=== PATIENT | male | born 1945 | race Caucasian/White ===

== ENCOUNTER 2021-04-19 17:21 | Inpatient (IN) ==
[2021-04-19] MEDS ORDERED: LORazepam 1 MG TAB SL STA (18:17)
[2021-04-19] MEDS ORDERED: haloperidoL 5 MG TAB PO STA (18:17)
--- NOTE | 2021-04-19 19:35 | XRay Report ---
XR chest 1V portable HISTORY: weakness COMPARISON: None. FINDINGS: The lungs are hyperexpanded with apical predominant emphysematous changes. There is a small right pleural effusion. The heart is normal in size. Interstitial thickening and a hazy right basila r density. There are small nodular densities within the lung apices. IMPRESSION: 1. Small right pleural effusion and right basilar hazy density. This may represent atelectasis or pne umonia. 2. Emphysema. 3. Small nodular densities within the lung apices which may be chronic. This will be better present o n the same day chest CT. ACT 112: Negative or not required by law. Electronically signed by: Roberto Fowler M.D. 04/19/2021 7:34 PM
[2021-04-19 19:52] LABS: Basophils # (auto) 0.03 K/uL (0-0.2); Basophils % (auto) 0.6 %; Eosinophils # (auto) 0.05 K/uL (0-0.5); Hematocrit (blood only) 34.4 % (42-52); Hemoglobin 11.6 g/dL (14.0-18.0); Immature Granulocytes # (auto) 0.01 K/uL (0.00-0.02); Immature Granulocytes % (auto) 0.2 %; Lymphocytes % (auto) 15.7 %; Mean Corpuscular Hgb Conc 33.7 g/dL (32-36); Mean Platelet Volume 8.7 fL (7.4-10.4); Monocytes # (auto) 0.68 K/uL (0.11-0.59); Monocytes % (auto) 13.3 %; Neutrophils # (auto) 3.53 K/uL (1.4-6.5); Neutrophils % (auto) 69.2 %; Platelet Count 230 K/uL (130-400); RDW Coefficient of Variation 13.4 % (11.5-14.5); RDW Standard Deviation 47.8 fL (36.4-46.3); Red Blood Count 3.51 M/uL (4.7-6.1)
[2021-04-19 20:15] LABS: Alanine Aminotransferase 26 U/L (12-78); Albumin Level 3.4 gm/dl (3.4-5.0); Aspartate Aminotransferase 24 U/L (15-37); BUN Creatinine Ratio 27.1 (10-20); Blood Urea Nitrogen 20 mg/dl (7-18); Calcium 8.6 mg/dl (8.5-10.1); Carbon Dioxide 28 mmol/L (21-32); Chloride 107 mmol/L (98-107); Creatinine Clr Calc Pharmacy 76.5 ml/min; Est GFR (African American) 103.6 ml/min; Est GFR (Non-African American) 89.3 ml/min; Glucose 119 mg/dl (70-99); Sodium 137 mmol/L (136-145)
[2021-04-19 20:26] LABS: Albumin Globulin Ratio 0.9 (0.9-2); Alkaline Phosphatase 81 U/L (45-117); Bilirubin,Total 1.1 mg/dl (0.2-1); Creatine Kinase 99 U/L (39-308); Creatine Kinase MB 3.4 ng/ml (0.5-3.6); Globulin 3.6 gm/dl (2.5-4.0); NT Pro B Type Natriuretic Pept 810 pg/ml (0-1800); Troponin I < 0.015 ng/ml (0-0.045)
[2021-04-19] MEDS ORDERED: OPTIRAY 320 125ml IV ONE (20:45)
[2021-04-19] MEDS ORDERED: PIPERACILL/TAZOBAC CONSULT ACTIVE PRN (21:36)
[2021-04-19] MEDS ORDERED: PIPERACILLIN/TAZOBACTAM 4.5 GM/120 ML BAG IV ONE (21:36)
[2021-04-19] MEDS ORDERED: OLANZapine 10 MG/2.1 ML SDV IM PRN (21:55)
[2021-04-19 22:00] LABS: Appearance Urine Clear (Clear); Bilirubin Urine Negative (Negative); Blood Urine Negative (Negative); Color Urine Yellow; Glucose Urine UA Negative (Negative); Ketones Urine Negative (Negative); Leukocyte Esterase Urine Negative (Negative); Nitrite Urine Negative (Negative); Protein Urine Negative (Negative); Specific Gravity Urine 1.035 (1.000-1.030); Urobilinogen Urine Negative (Negative); pH Urine 7.5 (4.5-7.5)
[2021-04-19 22:17] LABS: Magnesium 2.2 mg/dl (1.8-2.4)
--- NOTE | 2021-04-19 23:56 | History & Physical Report ---
Date of Service April 19, 2021 Assessment & Plan (1) Delirium: Plan: Probable undiagnosed dementia Mild clinical dehydration, ketonuria hx CAD status post stent hypertension, slight elevated esophageal cancer status post surgery/chemoradiation Anemia, unknown duration Hyperglycemia rule out DM Multiple pulmonary nodules on initial CT read past tobacco abuse Medical telemetry IVF, hold home diuretic for now Zyprexa as needed agitation, one-to-one nursing RN discretion Anemia work-up, transfuse PRBC if hemoglobin less than 8 and or for symptomatic anemia Check hemoglobin A1c Follow official CT chest result, periodic outpatient follow-up imaging as needed PT OT eval Social service RE discharge planning DVT prophylaxis. SCDs RE anemia; Lovenox 40 mg subcutaneous daily if stool FOBT negative DNR as per , Ms. Lizy Stern. Patient will try to travel to [employer] today. She requests updates from providers through [phone]. Text document was generated using [employer] voice recognition software. It may contain grammatical or spelling errors. Kindly contact undersigned for clarification of any documentation item in question. History of Present Illness Chief Complaint: I am okay as per patient Confusion; drove by himself from [facility] as per records Primary Care Provider: Dr. Nimco Philippe from [place], [place] History obtained from patient, family, and records. Limited history from patient secondary to confusion. Medical history significant for possible dementia as per , CAD status post stent, hypertension, esophageal cancer status post surgery/chemoradiation, past tobacco abuse, medication noncompliance as per . Patient noticed patient cognitive decline since esophageal cancer surgery a few years ago. Forgetfulness, episodic confusion. Patient has good mentation on most days though as per . suspected possible dementia but patient has refused to see his family doctor for almost a year now. Patient not taking his medications like usual as per . Patient left home in [place], [place] by himself yesterday to drive to their local [employer]. As per EMS report, patient found going around a grocery in [place], [place] this afternoon looking confused. Patient denies chest pain, S OB, cough, abdominal pain, dysuria symptoms. Patient brought to the ER for evaluation. Noted to be very combative at the ER. IV Ativan administered. Patient given Zosyn for possible pneumonia. 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 Allergies Allergy/AdvReac Type Severity Reaction Status Date / Time No Known Allergies Allergy Verified 04/19/21 18:08 Home Medications Medication Instructions Recorded Confirmed Type aspirin 81 mg tablet,delayed 81 mg PO DAILY 04/19/21 04/19/21 History release cholecalciferol (vitamin D3) 25 0 mcg PO DAILY 04/19/21 04/19/21 History mcg (1,000 unit) capsule (Vitamin D3) cyanocobalamin (vitamin B-12) 1,000 mcg PO DAILY 04/19/21 04/19/21 History 1,000 mcg tablet (Vitamin B-12) docusate sodium 100 mg capsule 100 mg PO DAILY 04/19/21 04/19/21 History (Stool Softener) furosemide 20 mg tablet (Lasix) 20 mg PO DAILY 04/19/21 04/19/21 History metoprolol succinate 25 mg 25 mg PO DAILY 04/19/21 04/19/21 History tablet,extended release 24 hr (Toprol XL) Past Med/Surg History Social History Smoking Status: Unknown if ever smoked Preferred Language: Greek Communication Ability Comment: Patient confused, unable to provide information Current Living Situation: Spouse Other Information That Helps Us Care for You: No Feels Safe at Home: Yes Safety Concerns: Feels Safe At This Time Assistive Devices: None Assistive Devices Comment: Patient confused, unable to provide information Review of Systems Review of Systems: Could not be reliably obtained Physical Exam Physical Exam: GENERAL: Comfortable, demented, no respiratory distress SKIN: Pallor , warm HEENT: Alopecia, bespectacled, pale palpebral conjunctivae, no ptosis, dry buccal mucosa NECK : Supple, no tenderness CHEST : Decreased breath sounds, no tenderness HEART : Bradycardic, no obvious murmurs ABDOMEN: No distention, nontender RECTAL : Refused EXTREMITIES : No LE swelling/tenderness, no other conspicuous deformities noted NEUROLOGIC : Demented, no facial asymmetry, gait and stance not assessed Results & Data Results & Data ([facility]) Vital Signs (Past 12 Hours) Vital Signs Temp Pulse Resp BP Pulse Ox 04/19/21 23:31 49 L 20 146/82 H 04/19/21 23:00 47 L 18 157/73 H 04/19/21 22:30 56 L 14 133/74 97 04/19/21 22:00 51 L 12 04/19/21 21:31 54 L 16 04/19/21 21:00 54 L 15 100 04/19/21 20:58 52 L 20 100 04/19/21 19:00 54 L 16 168/84 H 100 04/19/21 18:30 58 L 13 158/92 H 99 04/19/21 18:00 66 16 145/78 H 99 04/19/21 17:37 37 C 63 16 121/65 99 04/19/21 17:30 59 L 18 129/75 97 Laboratory Results Laboratory Results WBC 5.10 K/uL (4.8-10.8) 04/19/21 19:45 RBC 3.51 M/uL (4.7-6.1) L 04/19/21 19:45 Hgb 11.6 g/dL (14.0-18.0) L 04/19/21 19:45 Hct 34.4 % (42-52) L 04/19/21 19:45 MCV 98.0 fL (80-100) 04/19/21 19:45 MCH 33.0 pg (25-34) 04/19/21 19:45 MCHC 33.7 g/dL (32-36) 04/19/21 19:45 RDW Std Deviation 47.8 fL (36.4-46.3) H 04/19/21 19:45 RDW Coeff of Drake 13.4 % (11.5-14.5) 04/19/21 19:45 Plt Count 230 K/uL (130-400) 04/19/21 19:45 MPV 8.7 fL (7.4-10.4) 04/19/21 19:45 Immature Gran % (Auto) 0.2 % 04/19/21 19:45 Neut % (Auto) 69.2 % 04/19/21 19:45 Lymph % (Auto) 15.7 % 04/19/21 19:45 Casey % (Auto) 13.3 % 04/19/21 19:45 Eos % (Auto) 1.0 % 04/19/21 19:45 Baso % (Auto) 0.6 % 04/19/21 19:45 Neut # (Auto) 3.53 K/uL (1.4-6.5) 04/19/21 19:45 Lymph # (Auto) 0.80 K/uL (1.2-3.4) L 04/19/21 19:45 Casey # (Auto) 0.68 K/uL (0.11-0.59) H 04/19/21 19:45 Eos # (Auto) 0.05 K/uL (0-0.5) 04/19/21 19:45 Baso # (Auto) 0.03 K/uL (0-0.2) 04/19/21 19:45 Immature Gran # (Auto) 0.01 K/uL (0.00-0.02) 04/19/21 19:45 Sodium 137 mmol/L (136-145) 04/19/21 19:45 Potassium 4.0 mmol/L (3.5-5.1) 04/19/21 19:45 Chloride 107 mmol/L (98-107) 04/19/21 19:45 Carbon Dioxide 28 mmol/L (21-32) 04/19/21 19:45 Anion Gap 2.0 (3-11) L 04/19/21 19:45 BUN 20 mg/dl (7-18) H 04/19/21 19:45 Creatinine 0.72 mg/dl (0.6-1.4) 04/19/21 19:45 Est Cr Clr Drug Dosing 76.5 ml/min 04/19/21 19:45 Est GFR ( Amer) 103.6 ml/min 04/19/21 19:45 Est GFR (Non-Af Amer) 89.3 ml/min 04/19/21 19:45 BUN/Creatinine Ratio 27.1 (10-20) H 04/19/21 19:45 Glucose 119 mg/dl (70-99) H 04/19/21 19:45 Calcium 8.6 mg/dl (8.5-10.1) 04/19/21 19:45 Magnesium 2.2 mg/dl (1.8-2.4) 04/19/21 19:45 Total Bilirubin 1.1 mg/dl (0.2-1) H 04/19/21 19:45 AST 24 U/L (15-37) 04/19/21 19:45 ALT 26 U/L (12-78) 04/19/21 19:45 Alkaline Phosphatase 81 U/L (45-117) 04/19/21 19:45 Total Creatine Kinase 99 U/L (39-308) 04/19/21 19:45 CK-MB (CK-2) 3.4 ng/ml (0.5-3.6) 04/19/21 19:45 CK/CKMB % Calc 3.4 (0-3.0) H 04/19/21 19:45 Troponin I < 0.015 ng/ml (0-0.045) 04/19/21 19:45 NT-Pro-B Natriuret Pep 810 pg/ml (0-1800) 04/19/21 19:45 Total Protein 7.0 gm/dl (6.4-8.2) 04/19/21 19:45 Albumin 3.4 gm/dl (3.4-5.0) 04/19/21 19:45 Globulin 3.6 gm/dl (2.5-4.0) 04/19/21 19:45 Albumin/Globulin Ratio 0.9 (0.9-2) 04/19/21 19:45 TSH 2.040 uIu/ml (0.300-4.500) 04/19/21 19:45 Urine Color Yellow 04/19/21 21:33 Urine Appearance Clear (Clear) 04/19/21 21:33 Urine pH 7.5 (4.5-7.5) 04/19/21 21:33 Ur Specific [place] 1.035 (1.000-1.030) H 04/19/21 21:33 Urine Protein Negative (Negative) 04/19/21 21:33 Urine Glucose (UA) Negative (Negative) 04/19/21 21:33 Urine Ketones Negative (Negative) 04/19/21 21:33 Urine Blood Negative (Negative) 04/19/21 21:33 Urine Nitrite Negative (Negative) 04/19/21 21:33 Urine Bilirubin Negative (Negative) 04/19/21 21:33 Urine Urobilinogen Negative (Negative) 04/19/21 21:33 Ur Leukocyte Esterase Negative (Negative) 04/19/21 21:33 COVID-19 Eval Order Covid19 at [facility] 04/19/21 18:30 SARS-CoV-2 (PCR) NEGATIVE (Negative) 04/19/21 18:30 Impressions Chest X-Ray 04/19/21 18:09 XR chest 1V portable HISTORY: weakness COMPARISON: None. FINDINGS: The lungs are hyperexpanded with apical predominant emphysematous changes. There is a small right pleural effusion. The heart is normal in size. Interstitial thickening and a hazy right basilar density. There are small nodular densities within the lung apices. IMPRESSION: 1. Small right pleural effusion and right basilar hazy density. This may represent atelectasis or pneumonia. 2. Emphysema. 3. Small nodular densities within the lung apices which may be chronic. This will be better present on the same day chest CT. ACT 112: Negative or not required by law. Electronically signed by: Roberto Fowler M.D. 04/19/2021 7:[address] head initial read: No acute intracranial hemorrhage, mass-effect, or midline shift. Scattered periventricular and subcortical foci of hypoattenuation is likelythe sequela of chronic small vessel ischemic changes. CT chest initial read: No acute pulmonaryembolus. No focal consolidation. Small right pleural effusion. Postsurgical changes of the stomach and esophagus. Several solid pulmonarynodules bilaterallylargest measuring 9 mm(series 5, image 92). Fleischner SocietyGuidelines for low-risk patients recommend follow-up chest CT at 3-6 months. If unchanged consider an additional follow-up CT at 18-24 months. For high-risk patients (smoking historyor other known risk factors) initial follow-up chest CT at 3-6 months and if unchanged, 18-[address] abdomen pelvis initial read: Small right pleural effusion. No small bowel obstruction. No free air or significant free fluid. No hydronephrosis. Appendix not definitelyvisualized. Postsurgical changes of the stomach and esophagus. EKG as per my interpretation rate 65, NSR, normal axis, RBBB, 1 AVB, inferior infarct, low voltage
[2021-04-20 01:11] LABS: Lyme Ab IgG w/WB Rflx Negative (Negative); Lyme Ab IgM w/WB Rflx Negative (Negative)
[2021-04-20] MEDS ORDERED: SODIUM CHLORIDE 0.9% 1000ML 1,000 ML IV ONE (01:12)
[2021-04-20] MEDS ORDERED: PROMETHAZINE HCL 6.25 MG in SODIUM CHLORIDE 0.9% 50 ML IV PRN (03:20)
[2021-04-20] MEDS ORDERED: ACETAMINOPHEN 325 MG TAB PO PRN (03:20)
[2021-04-20] MEDS ORDERED: PNEUMOCOCCAL Polysaccharide Vaccine 25mcg/0.5mL vial/Syr IM ONE (04:45)
[2021-04-20 06:04] LABS: Basophils # (auto) 0.02 K/uL (0-0.2); Basophils % (auto) 0.4 %; Eosinophils # (auto) 0.11 K/uL (0-0.5); Eosinophils % (auto) 2.3 %; Hematocrit (blood only) 36.6 % (42-52); Hemoglobin 12.4 g/dL (14.0-18.0); Immature Granulocytes # (auto) 0.02 K/uL (0.00-0.02); Immature Granulocytes % (auto) 0.4 %; Lymphocytes # (auto) 0.92 K/uL (1.2-3.4); Lymphocytes % (auto) 18.9 %; Mean Corpuscular Hemoglobin 33.2 pg (25-34); Mean Corpuscular Hgb Conc 33.9 g/dL (32-36); Mean Corpuscular Volume 97.9 fL (80-100); Mean Platelet Volume 8.8 fL (7.4-10.4); Monocytes # (auto) 0.51 K/uL (0.11-0.59); Monocytes % (auto) 10.5 %; Neutrophils # (auto) 3.28 K/uL (1.4-6.5); Neutrophils % (auto) 67.5 %; Platelet Count 254 K/uL (130-400); RDW Coefficient of Variation 13.3 % (11.5-14.5); RDW Standard Deviation 47.7 fL (36.4-46.3); Red Blood Count 3.74 M/uL (4.7-6.1); Reticulocytes # 0.04 10^6/uL (0.02-0.10); White Blood Count 4.86 K/uL (4.8-10.8)
[2021-04-20 06:24] LABS: BUN Creatinine Ratio 20.7 (10-20); Calcium 8.5 mg/dl (8.5-10.1); Creatinine Clr Calc Pharmacy 78.7 ml/min; Est GFR (African American) 104.8 ml/min; Est GFR (Non-African American) 90.4 ml/min; Potassium 3.8 mmol/L (3.5-5.1)
[2021-04-20 06:29] LABS: Ferritin 223.6 ng/ml (8-388)
--- NOTE | 2021-04-20 06:43 | CT Scan Report ---
CT head/brain wo con CLINICAL HISTORY: 76 years-old Male with AMS. Acutely altered mental status TECHNIQUE: Multiple axial CT images of the head were obtained without contrast. A dose lowering tech nique was utilized adhering to the principles of ALARA. COMPARISON: None. FINDINGS: No acute intracranial hemorrhage, midline shift, intracranial mass, hydrocephalus, territorial ischem ia or abnormal extra-axial collection. Age-related involutional changes. White matter hypodensities s uggestive of chronic microvascular ischemic disease. The calvarium is intact. Prior bilateral lens repair. The paranasal sinuses, mastoid air cells, and m iddle ear cavities are clear. IMPRESSION: No acute intracranial abnormality. ACT 112: Negative or not required by law. The above report was generated using voice recognition software. It may contain grammatical, syntax o r spelling errors. Electronically signed by: Ernesto Arteaga M.D. 04/20/2021 6:42 AM
[2021-04-20 06:58] LABS: Folate (Folic Acid) 12.7 ng/ml (>5.38)
[2021-04-20 07:30] LABS: Estimated Average Glucose 117 mg/dl; Hemoglobin A1C 5.7 % (4.5-5.6)
--- NOTE | 2021-04-20 07:51 | CT Scan Report ---
CT abd pelvis IV con only CLINICAL HISTORY: Pt c/o AMS COMPARISON STUDY: None. TECHNIQUE: A dose lowering technique was utilized adhering to the principles of ALARA. CT DOSE: FINDINGS: Evaluation is limited due to beam hardening artifact from patient's arms and very little amount of in tra-abdominal fat. Lower chest: Please see report of the CT of the chest performed at the same time.. Liver: The contrast-enhanced liver is normal in size, contour, and attenuation. There is minimal prom inence of the central intrahepatic biliary ducts. No focal liver lesions are seen.. Gallbladder: Is fluid-filled. No definite gallstones are seen. Spleen: Normal in size and attenuation. Pancreas: Body and tail are atrophic. Pancreatic head and uncinate process shows no definite focal le sions and mild prominence of the distal common bile duct. Adrenal glands: Unremarkable. Kidneys: There is symmetric renal cortical enhancement. The kidneys are normal in size without hydron ephrosis.No definite nephrolithiasis is seen. 1.0 cm hypoattenuating lesion is seen within left renal cortex, most likely representing cyst. Pelvic viscera: Urinary bladder is adequately filled with urine. Prostate gland is not enlarged. Bowel: Postsurgical changes at the gastroesophageal junction. Possible status post pull-through proce dure. Please correlate this findings with prior history. Loops of small bowel are nondilated, fluid-filled with mild diffuse mucosal enhancement. Loops of lar ge bowel are normal in caliber with extensive stool content. Rectum is mildly dilated with gas and st ool. Appendix is not well seen. Limited evaluation due to very little amount of intra-abdominal fat a nd cachexia. Peritoneum: There is no intraperitoneal free air or abdominal ascites. Vasculature: Abdominal aorta is normal in caliber, tortuous with multiple partial calcified plaques w ithin its wall. Large atheromatous plaques is seen within infrarenal aorta without significant lumina l narrowing measuring 1.7 x 1.5 cm (7/22) Adenopathy: No definite adenopathy is seen however evaluation is limited due to very little amount of intra-abdominal fat. Skeletal structures: Mild diffuse osteopenia. Multilevel degenerative changes of the spine. Mild lumb ar levoscoliosis. Osteophytes and sclerotic appearance of bilateral sacroiliac joints, could represent degenerative pro cess. Small sclerotic lesion is seen within right iliac bone () IMPRESSION: 1. Nondilated loops of small and large bowel. No evidence of bowel obstruction. Limited exam due to very little amount of intra-abdominal fat. 2. No free intra-abdominal gas or fluid. 3. Minimal central prominence of intrahepatic biliary ducts. 4. Atherosclerosis. 5. Degenerative changes of the spine. 6. Cachexia. 7. Postsurgical changes at the gastroesophageal junction, might represent prior esophageal pull-thro ugh procedure. Please correlate with prior history. 8. The rest of findings as above. ACT 112: Negative or not required by law. The above report was generated using voice recognition software. It may contain grammatical, syntax o r spelling errors. Electronically signed by: Jaida Mora DO 04/20/2021 7:50 AM
--- NOTE | 2021-04-20 08:18 | CT Scan Report ---
CT angio chest PE protocol CT DOSE: 1191.20 mGy.cm HISTORY: 76 years-old Male with PE. Acute shortness of breath TECHNIQUE: Multiple CTA images of the chest were obtained after the intravenous administration of 119 ml Optiray. Coronal and sagittal MIPS were obtained from the axial data set and were submitted for review. All measurements were obtained according to NASCET criteria. A dose lowering technique was u tilized adhering to the principles of ALARA. COMPARISON: CT abdomen and pelvis of same day FINDINGS: CTA: The heart is normal in size. There is no pericardial effusion. Extensive coronary artery calcificatio ns. Moderate atherosclerosis of the thoracic aorta without aneurysm or dissection, suboptimally evalu ated secondary to contrast bolus timing. Reflux of contrast into the IVC and hepatic veins. The pulmo nary artery is opacified to the level of the subsegmental branches and demonstrates no filling defect s to suggest thromboembolic disease. CT CHEST: Unremarkable thyroid. Calcified mediastinal and hilar lymph nodes suggestive of prior granulomatous d isease. Trace left and small mildly loculated right pleural effusion. There is no pneumothorax. Mild intralobular septal thickening of the right lung base. Mild pleural parenchymal scarring of the lung apices. There are greater than 20 solid pulmonary nodules of the bilateral lungs in a multilobar dist ribution, the largest nodule measures 9 mm of the left upper lobe on image 229. A 6 mm nodule is pres ent within the left upper lobe on image 222. An 8 mm and 6 mm nodule of the right upper lobe are pres ent on image 220. Additionally, there are a few calcified pulmonary nodules present. The central airw ays appear generally patent with minimal tracheobronchial secretions. Mild groundglass opacities of t he right lung base. Postoperative changes of the esophagus and stomach suggestive of gastric pull-through. Unremarkable s oft tissues. No acute fracture. Healed right-sided rib fractures. IMPRESSION: 1. No pulmonary emboli. 2. Trace left and small mildly loculated right pleural effusion with right lung base atelectasis. 3. Mild intralobular septal thickening of the right lung base raises the possibility of asymmetric pu lmonary edema. 4. Prior granulomatous disease. Additionally, there are numerous (greater than 20) solid subcentimete r bilateral pulmonary nodules measuring up to 9 mm within the left upper lobe. Follow-up guidelines p rovided below. 5. Prior gastric pull-through. Please refer to below summary of Fleaimeener criteria recommendations for follow-up of incidental CT n odules ([place], Guidelines for management of small pulmonary nodules detected on CT scans: A sta tement from the Fleischner Society, Radiology 237: [phone].) SOLID NODULES Multiple nodules size: >8 mm * Low risk patients: follow-up at 3-6 months, then consider further follow-up at 18-24 months * high risk patients: follow-up at 3-6 months, then at 18-24 months if no change Note: newly detected indeterminate nodule in persons 35 years of age or older. * Low risk patients: minimal or absent history of smoking and/or other known risk factors * high risk patients: history of smoking or of other known risk factors (e.g. first degree relative with lung cancer, or exposure to asbestos, radon, uranium) * if a nodule up to 8 mm is partly solid or is ground glass further follow-up is required after 24 m onths to exclude possible slow growing adenocarcinoma ([facility]) ACT 112: Negative or not required by law. The above report was generated using voice recognition software. It may contain grammatical, syntax o r spelling errors. Electronically signed by: Ernesto Arteaga M.D. 04/20/2021 8:17 AM
[2021-04-20] MEDS: DOCUSATE SODIUM 100 MG CAP PO SCH (08:42)
--- NOTE | 2021-04-20 16:18 | Electrocardiogram Report ---
Test Reason : Blood Pressure : / mmHG Vent. Rate : 066 BPM Atrial Rate : 066 BPM P-R Int : 224 ms QRS Dur : 130 ms QT Int : 436 ms P-R-T Axes : 077 053 035 degrees QTc Int : 457 ms Sinus rhythm with 1st degree A-V block with Premature supraventricular complexes Right bundle branch block Inferior infarct , age undetermined Abnormal ECG No previous ECGs available Confirmed by Darinel Green ([id number]) on 04/20/2021 4:18:01 PM Referred By: REFERRED SELF Confirmed By:Darinel Green
--- NOTE | 2021-04-20 17:36 | Hospitalist Progress Note ---
Date of Service April 20, 2021 Assessment & Plan (1) Delirium: Plan: Mostly due to Advanced dementia ( notices cognitive declined in the last years) CT head showed no acute intracranial abnormality. CTA chest showed no PE or pneumonia No evidence to suggest any infection UA negative for UTI Spoke to that requested if pt can be evaluated neurology while in the hospital since pt has been refused to see a doctor would like him to be placed at a facility because she cannot care for him anymore Will consult neurology at per family request Will continue monitor closely CAD S/P stent Denies any chest pain will resume Aspirin and Metoprolol HTN BP fluctuated possible due to hospital setting Will resume metoprolol and Lasix Continue monitor BP Lung nodule CT Lung showed numerous (greater than 20) solid subcentimeter bilateral pulmona ry nodules measuring up to 9 mm within the left upper lobe. Continue outpatient CT follow up DVT prophylaxis. SCDs, will add heparin subq Code status DNR She requests updates from providers through [phone]. Admission and Anticipated Discharge Date Admission Date: April 19, 2021 Subjective Pt was seen and examined for follow up of confusion Lying in bed with no acute distress He seems to be at his baseline I spoke to over the phone and she said that she cannot care for him anymore because he is requiring too much She would like him to be placed at a facility close to the [place], [place] area Denies any chest pain, palpitation, dizziness and SOB Physical Exam Physical Exam: General- No acute distress Head- atraumatic Eyes- PERRL, EOMI, ENT- oropharynx clear Neck- supple, no JVD Lungs- clear to auscultation Heart- regular rhythm; no murmur Abdomen- normal bowel sounds, soft, nontender Extremities- no calf tenderness Neuro- alert, awake, not oriented to time, place ; PERRL, EOMI; no facial palsy; no dysarthria Skin- warm & dry Results & Data Results & [facility] ([facility]) Vital Signs (Past 12 Hours) Vital Signs Temp Pulse Pulse Resp BP Pulse Ox 04/20/21 16:04 36.8 C 58 L 18 150/79 H 100 04/20/21 11:22 36.5 C 57 L 18 138/70 100 04/20/21 08:00 52 L 04/20/21 07:56 36.6 C 58 L 16 123/71 99
[2021-04-20] MEDS ORDERED: HALOPERIDOL LACTATE 5 MG/ML 1 ML VIAL IM STA ×2 (19:20→22:39)
[2021-04-20] MEDS ORDERED: HALOPERIDOL LACTATE 5 MG/ML 1 ML VIAL ONE ×2 (19:24→22:43)
[2021-04-20] MEDS ORDERED: OLANZapine 10 MG/2.1 ML SDV IM STA (20:26)
[2021-04-21] MEDS: DOCUSATE SODIUM 100 MG CAP PO SCH (09:17)
--- NOTE | 2021-04-21 09:29 | Neurology Consultation ---
Date of Consultation April 21, 2021 Assessment & Plan (1) Delirium: Present on Admission?: Yes 1. MRI brain with and without due to CA history 2. B12, folate, thiamine labs 3. EEG- r/o seizure event 4. full work up for dementia is an outpatient work up and should be done by neurology in [facility] in conjuction with PCP 5. r/o infectious process 6. will need placement as is unable to care for him at this point no follow up needed with our neurology group as he is outside our area. Supervising Physician Co-Signing Physician Notes Patient was seen and examined this afternoon. Patient is in restraints resting in bed. Speech is largely incomprehensible and at times tends to mumble. He tells me today is 85 years old and is not oriented to the year. He was unable to tell me where he lives part. He did tell me his 's name. He was disoriented to the location. He did not appear agitated although he sometimes appeared restless. He was moving all 4 extremities his pupils are symmetric his eyes were midline he was following simple commands such as stick out your tongue show me your left hand to move both your legs. He answers some questions approp riately but it once again his speech was largely incomprehensible most of the time. I also did discuss with the over the phone at 4:30 PM today. She states he had a similar incident while driving where he would become lost and unable to find where his location of interest was. She will often tell him that he is driving to [facility] towards the [place] area and then often aborts and ends up coming home. However that this time he did end up at a [facility] in [facility]. Patient underwent extensive testing here including a CT of the head as well as checks chest x-ray and urinalysis as well as blood cultures. Vital signs remained stable. No signs of infection. No signs of any large electrolyte abnormality. It does do sound like through discussion with the patient's that this has been a progressive condition including short- term memory loss as well as irritability agitation personality changes as well as he is dependent fully on his ADLs. Clinical history is certainly supportive that the patient has a dementia. In terms of specificity the differential diagnosis certainly includes Alzheimer's dementia. At this point the patient will be likely following with a healthcare provider closer to his home as he resides roughly 3 hours away from [facility]. His is unable to visit due to the distance as well as she recently recovering from spleen surgery. In terms of mood stabilization if needed Depakote 500 mg IV every 12 hours is a safe option. Otherwise agree with the and that placement is required if she is not able to adequately take care of them. I did discuss with the that driving is likely not a safe option. 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 I do not think any additional neurological work-up is warranted at this time. He may benefit from formal neuropsychological testing and neurology follow-up as an outpatient closer to home. Currently the patient is delirious so certainly hard to see appreciate at baseline. Please contact me with any additional questions or concerns. History of Present Illness Reason for Consultation: confusion possible dementia Requesting Physician: Suresh Antony MD Attending Physician: Suresh Antony MD History of Present Illness Mil is a 76 year old male who presented to the [facility] ED on 04/19/2021 with confusion. He drove himself from [employer] [place] per Primary Care Provider: Dr. Nimco Philippe from [facility]. He has a PMH- CAD status post stent, HTN, esophageal cancer status post surgery/chemoradiation, previous tobacco abuse. He has had cognitive decline since esophageal cancer surgery a few years ago. Forgetfulness, episodic confusion and posible dementia but has not see his PCP for about 1 year and does not take his medications. He was going to go to their local [facility]. He was found in a grocery store in [place], [place] looking confused. he was then brought to the ER for evaluation but was very combative. He is currently refrained and not cooperative with exam. denies pain Allergies Allergy/AdvReac Type Severity Reaction Status Date / Time No Known Allergies Allergy Verified 04/19/21 18:08 Home Medications Medication Instructions Recorded Confirmed Type aspirin 81 mg tablet,delayed 81 mg PO DAILY 04/19/21 04/19/21 History release cholecalciferol (vitamin D3) 25 0 mcg PO DAILY 04/19/21 04/19/21 History mcg (1,000 unit) capsule (Vitamin D3) cyanocobalamin (vitamin B-12) 1,000 mcg PO DAILY 04/19/21 04/19/21 History 1,000 mcg tablet (Vitamin B-12) docusate sodium 100 mg capsule 100 mg PO DAILY 04/19/21 04/19/21 History (Stool Softener) furosemide 20 mg tablet (Lasix) 20 mg PO DAILY 04/19/21 04/19/21 History metoprolol succinate 25 mg 25 mg PO DAILY 04/19/21 04/19/21 History tablet,extended release 24 hr (Toprol XL) Patient History Social History Smoking Status: Unknown if ever smoked Preferred Language: Singaporean Communication Ability Comment: Patient confused, unable to provide information Current Living Situation: Spouse Other Information That Helps Us Care for You: No Feels Safe at Home: Yes Safety Concerns: Feels Safe At This Time Assistive Devices: Glasses Assistive Devices Comment: Patient confused, unable to provide information Review of Systems Review of Systems: Unobtainable due to cognitive status Physical Exam Physical Exam: Physical Exam: Constitutional: appearance thin frail Ears, Nose, Mouth and Throat: mucous membranes moist, no injection and skin normal, eyes normal Cardiovascular: normal S-1 and S-2 and regular rate and rhythm Respiratory: course breath sounds MS: muscle wasting throughout Skin: thin pale Eyes: extraocular muscles intact (EOMI) NEUROLOGIC EXAMINATION: Mental status: Alert and interactive Oriented to person Speech mumbling hard to understand does not know where he is Cranial Nerves no facial asymmetry Reflexes: no assessed Gait/Stance: Posture lying in bed combative Strength: does not cooperate Results & Data ([facility]) Vital Signs (Past 12 Hours) Vital Signs Temp Pulse Pulse Pulse Resp BP BP 04/21/21 08:22 37.1 C 81 19 155/83 H 04/21/21 07:59 66 04/21/21 04:35 36.8 C 70 130/67 04/20/21 23:07 36.8 C 73 20 143/80 H Pulse Ox 04/21/21 08:22 97 04/21/21 07:59 04/21/21 04:35 99 04/20/21 23:07 99 Laboratory Results no new lab results. Diagnostic Findings CT head-No acute intracranial hemorrhage, midline shift, intracranial mass, hydrocephalus, territorial ischemia or abnormal extra-axial collection. Age- related involutional changes. White matter hypodensities suggestive of chronic microvascular ischemic disease. The calvarium is intact. Prior bilateral lens repair. The paranasal sinuses, mastoid air cells, and middle ear cavities are clear. CT abd/pelvis-Nondilated loops of small and large bowel. No evidence of bowel obstruction. Limited exam due to very little amount of intra-abdominal fat. No free intra-abdominal gas or fluid. Minimal central prominence of intrahepatic biliary ducts. Atherosclerosis. Degenerative changes of the spine. Cachexia. Postsurgical changes at the gastroesophageal junction, might represent prior esophageal pull-through procedure. Please correlate with prior history. CTA chest-No pulmonary emboli. Trace left and small mildly loculated right pleural effusion with right lung base atelectasis. . Mild intralobular septal thickening of the right lung base raises the possibility of asymmetric pulmonary edema. Prior granulomatous disease. Additionally, there are numerous (greater than 20) solid subcentimeter bilateral pulmonary nodules measuring up to 9 mm within the left upper lobe. Follow-up guidelines provided. . Prior gastric pull- through.
[2021-04-21] MEDS ORDERED: ASPIRIN 81 MG ECTAB PO SCH (09:45)
[2021-04-21] MEDS: FUROSEMIDE 20 MG TAB PO SCH (11:29)
[2021-04-21] MEDS: METOPROLOL SUCC 25MG EXT REL TAB PO SCH (11:30)
--- NOTE | 2021-04-21 17:00 | Electroencephalogram ---
EEG Procedure Note Date of Service April 21, 2021 Start / End Times Start Time: 11:40 End Time: 12:00 Referring Physician Rafael Montoya MD History A 76-year-old male with altered mental status. EEG performed for ration of epileptiform activity. Home Medication List Medication Instructions Recorded Confirmed Type aspirin 81 mg tablet,delayed 81 mg PO DAILY 04/19/21 04/19/21 History release cholecalciferol (vitamin D3) 25 0 mcg PO DAILY 04/19/21 04/19/21 History mcg (1,000 unit) capsule (Vitamin D3) cyanocobalamin (vitamin B-12) 1,000 mcg PO DAILY 04/19/21 04/19/21 History 1,000 mcg tablet (Vitamin B-12) docusate sodium 100 mg capsule 100 mg PO DAILY 04/19/21 04/19/21 History (Stool Softener) furosemide 20 mg tablet (Lasix) 20 mg PO DAILY 04/19/21 04/19/21 History metoprolol succinate 25 mg 25 mg PO DAILY 04/19/21 04/19/21 History tablet,extended release 24 hr (Toprol XL) Inpatient Medication List Docusate Sodium (Docusate Sodium 100 Mg Cap) 100 mg PO DAILY [facility] Stop: 05/20/21 08:59 Last Admin: 04/21/21 09:17 Dose: Not Given Documented by: [id number] Admin: 04/20/21 08:42 Dose: Not Given Documented by: [id number] Furosemide (Furosemide 20 Mg Tab) 20 mg PO DAILY [facility] Stop: 05/21/21 09:44 Last Admin: 04/21/21 11:29 Dose: 20 mg Documented by: [id number] Metoprolol Succinate (Metoprolol Succ 25mg Ext Rel Tab) 25 mg PO DAILY [facility] Stop: 05/21/21 09:44 Last Admin: 04/21/21 11:30 Dose: 25 mg Documented by: [id number] Olanzapine (Olanzapine 10 Mg/2.1 Ml Sdv) 2.5 mg IM Q4H PRN PRN Reason: Anxiety/Agitation Stop: 05/19/21 21:54 Last Admin: 04/20/21 18:10 Dose: 2.5 mg Documented by: [id number] Discontinued Medications Haloperidol (Haloperidol 5 Mg Tab) 5 mg PO NOW STA Stop: 04/19/21 18:18 Last Admin: 04/19/21 18:55 Dose: 5 mg Documented by: [id number] Haloperidol Lactate (Haloperidol Lactate 5 Mg/Ml 1 Ml Vial) 2 mg IM NOW STA Stop: 04/20/21 19:21 Last Admin: 04/20/21 19:49 Dose: Not Given Documented by: [id number] Haloperidol Lactate (Haloperidol Lactate 5 Mg/Ml 1 Ml Vial) Confirm Administered Dose 5 mg .ROUTE .STK-MED ONE Stop: 04/20/21 19:25 Last Admin: 04/20/21 19:25 Dose: 5 mg Documented by: [id number] Haloperidol Lactate (Haloperidol Lactate 5 Mg/Ml 1 Ml Vial) 4 mg IM NOW STA Stop: 04/20/21 22:40 Last Admin: 04/20/21 22:50 Dose: 4 mg Documented by: [id number] Haloperidol Lactate (Haloperidol Lactate 5 Mg/Ml 1 Ml Vial) Confirm Administered Dose 5 mg .ROUTE .STK-MED ONE Stop: 04/20/21 22:44 Last Admin: 04/20/21 22:51 Dose: Not Given Documented by: [id number] Piperacillin Sod/Tazobactam Sod (Zosyn) 4.5 gm in 120 mls @ 240 mls/hr IV NOW ONE Stop: 04/19/21 22:05 Last Infusion: 04/19/21 23:54 Dose: 0 mls/hr Documented by: [id number] Admin: 04/19/21 22:43 Dose: 240 mls/hr Documented by: [id number] Sodium Chloride (Nss 1000ml) 1,000 mls @ 50 mls/hr IV .Q20H ONE Stop: 04/20/21 21:11 Last Infusion: 04/20/21 16:18 Dose: 0 mls/hr Documented by: [id number] Admin: 04/20/21 03:42 Dose: 50 mls/hr Documented by: [id number] Ioversol (Optiray 320 125ml) 119 ml IV ONCE ONE Stop: 04/19/21 20:46 Last Admin: 04/19/21 20:45 Dose: 1 ml Documented by: [id number] Lorazepam (Lorazepam 1 Mg Tab) 1 mg SL NOW STA Stop: 04/19/21 18:18 Last Admin: 04/19/21 18:55 Dose: 1 mg Documented by: [id number] Olanzapine (Olanzapine 10 Mg/2.1 Ml Sdv) 2.5 mg IM NOW STA Stop: 04/20/21 20:27 Last Admin: 04/20/21 20:41 Dose: 2.5 mg Documented by: [id number] Pneumococcal Polyvalent Vaccine (Pneumococcal Polysaccharide Vaccine 25mcg/0.5ml Vial/Syr) 25 mcg IM .ONCE ONE Stop: 04/20/21 04:46 Last Admin: 04/20/21 20:23 Dose: Not Given Documented by: [id number] Description This is a 21 electrode EEG with a single channel dedicated to limited EKG. The electrodes were placed in accordance with the International 10-20 system. REPORT: At the onset of the EEG the patient is asleep. The background is symmetric. The posterior dominant rhythm is not well seen during this recording. The background predominantly consist of 3 to 4 Hz delta activity with some intermixed theta activity. Photic stimulation does not induce any abnormalities. No epileptiform discharges are recorded. No stage II sleep transients are recorded. Interpretation IMPRESSION: This is an abnormal EEG in a patient with altered mentation due to moderate to severe generalized background slowing suggestive of a nonspecific encephalopathy. No epileptiform discharges are recorded. A repeat EEG as an outpatient when the patient is more alert may be useful for further characterization of the waking background.
--- NOTE | 2021-04-21 22:56 | Hospitalist Progress Note ---
Date of Service April 21, 2021 Assessment & Plan (1) Delirium: Plan: Mostly due to Advanced dementia ( notices cognitive declined in the last years) CT head showed no acute intracranial abnormality. CTA chest showed no PE or pneumonia No evidence to suggest any infection UA negative for UTI Spoke to that requested if pt can be evaluated neurology while in the hospital since pt has been refused to see a doctor would like him to be placed at a facility because she cannot care for him anymore Neurology on board no additional testing Will continue monitor closely CAD S/P stent Denies any chest pain will resume Aspirin and Metoprolol HTN BP fluctuated possible due to hospital setting Will resume metoprolol and Lasix Continue monitor BP Lung nodule CT Lung showed numerous (greater than 20) solid subcentimeter bilateral pulmonary nodules measuring up to 9 mm within the left upper lobe. Continue outpatient CT follow up DVT prophylaxis. SCDs, will add heparin subq Code status DNR She requests updates from providers through [id number]. Admission and Anticipated Discharge Date Admission Date: April 19, 2021 Subjective Pt was seen and examined for follow up of confusion Lying in bed with no acute distress He seems to be at his baseline He was placed on restraint last night but currently calm Denies any chest pain, palpitation, dizziness and SOB Physical Exam Physical Exam: General- No acute distress Head- atraumatic Eyes- PERRL, EOMI, ENT- oropharynx clear Neck- supple, no JVD Lungs- clear to auscultation Heart- regular rhythm; no murmur Abdomen- normal bowel sounds, soft, nontender Extremities- no calf tenderness Neuro- alert, awake, not oriented to time, place ; PERRL, EOMI; no facial palsy; no dysarthria Skin- warm & dry Results & Data Results & Data ([facility]) Vital Signs (Past 12 Hours) Vital Signs Temp Pulse Pulse Resp BP Pulse Ox 04/21/21 19:21 36.9 C 18 130/74 96 04/21/21 15:00 36.9 C 73 16 103/64 96 04/21/21 11:50 36.8 C 70 18 106/66 96
[2021-04-22] MEDS: METOPROLOL SUCC 25MG EXT REL TAB PO SCH ×2 (09:10→12:19)
[2021-04-22] MEDS: FUROSEMIDE 20 MG TAB PO SCH (09:10)
[2021-04-22] MEDS: DOCUSATE SODIUM 100 MG CAP PO SCH (09:10)
--- NOTE | 2021-04-22 19:23 | Hospitalist Progress Note ---
Date of Service April 22, 2021 Assessment & Plan (1) Delirium: Plan: Mostly due to Advanced dementia ( notices cognitive declined in the last years) CT head showed no acute intracranial abnormality. CTA chest showed no PE or pneumonia No evidence to suggest any infection UA negative for UTI Spoke to that requested if pt can be evaluated neurology while in the hospital since pt has been refused to see a doctor would like him to be placed at a facility because she cannot care for him anymore Neurology on board no additional testing Will continue monitor closely Waiting for placement to dementia unit records CAD S/P stent Denies any chest pain will resume Aspirin and Metoprolol HTN BP fluctuated possible due to hospital setting Will resume metoprolol and Lasix Continue monitor BP Lung nodule CT Lung showed numerous (greater than 20) solid subcentimeter bilateral pulmonary nodules measuring up to 9 mm within the left upper lobe. Continue outpatient CT follow up DVT prophylaxis. SCDs Code status DNR Waiting for placement She requests updates from providers through [id number]. Admission and Anticipated Discharge Date Admission Date: April 19, 2021 Subjective Pt was seen and examined for follow up of confusion Lying in bed with no acute distress Denies any chest pain, palpitation, dizziness and SOB Physical Exam Physical Exam: General- No acute distress Head- atraumatic Eyes- PERRL, EOMI, ENT- oropharynx clear Neck- supple, no JVD Lungs- clear to auscultation Heart- regular rhythm; no murmur Abdomen- normal bowel sounds, soft, nontender Extremities- no calf tenderness Neuro- alert, awake, not oriented to time, place ; PERRL, EOMI; no facial palsy; no dysarthria Skin- warm & dry Results & Data Results & Data ([facility]) Vital Signs (Past 12 Hours) Vital Signs Temp Pulse Pulse Resp BP Pulse Ox 04/22/21 15:00 36.7 C 72 20 165/86 H 98 04/22/21 12:00 36.6 C 76 20 164/92 H 93 04/22/21 08:45 73
[2021-04-22] MEDS ORDERED: GADOBUTROL 65ML VIAL IV ONE (20:47)
--- NOTE | 2021-04-23 11:49 | Magnetic Resonance Report ---
MRI OF THE BRAIN WITHOUT AND WITH IV CONTRAST CLINICAL HISTORY: worsening confusion COMPARISON STUDY: No previous studies for comparison. TECHNIQUE: MRI of the brain was performed from the vertex to the skull base utilizing various T1 and T2 weighted sequences. Following the IV administration of mL of Gadavist contrast, additional enhance d images were obtained. FINDINGS: Sagittal T1, axial diffusion, proton density and T2 weighted axial, coronal FLAIR, and pre and post a xial T1-weighted images were acquired. These were supplemented with post gadolinium coronal T1 weight ed images. No intra or extra-axial mass lesions are visualized. Axial diffusion-weighted images reveal no evidence of acute or subacute infarction. Atrophic changes of brain parenchyma are seen and associated with ex vacuo dilatation of ventricles. Small focal area of slightly decreased T1 signal is seen within the brain, shows no evidence of abnor mal enhancement, not seen on T2 FLAIR sequences and also not visualized on T2 and GRE sequence, could be artifactual. Proton density T2-weighted and FLAIR images reveal scattered foci of increased T2 signal within the w krystina matter, likely on a small vessel basis. There are no abnormal flow voids. There is no evidence of pathologic enhancement. IMPRESSION: No acute intracranial hemorrhage, no midline shift or space occupying lesions. Chronic small vessel ischemia and atrophic changes of brain parenchyma. No evidence of restricted diffusion to suggest acute ischemia/infarct. No areas of abnormal enhancement. The rest of findings as above. ACT 112: Negative or not required by law. The above report was generated using voice recognition software. It may contain grammatical, syntax o r spelling errors. Electronically signed by: aJida Mora DO 04/23/2021 11:48 AM
[2021-04-23] MEDS: DOCUSATE SODIUM 100 MG CAP PO SCH (14:49)
[2021-04-23] MEDS: FUROSEMIDE 20 MG TAB PO SCH (14:50)
[2021-04-23] MEDS: METOPROLOL SUCC 25MG EXT REL TAB PO SCH (14:50)
--- NOTE | 2021-04-23 23:21 | Hospitalist Progress Note ---
Date of Service April 23, 2021 Assessment & Plan (1) Delirium: Plan: Mostly due to Advanced dementia ( notices cognitive declined in the last years) CT head showed no acute intracranial abnormality. CTA chest showed no PE or pneumonia No evidence to suggest any infection UA negative for UTI Spoke to that requested if pt can be evaluated neurology while in the hospital since pt has been refused to see a doctor would like him to be placed at a facility because she cannot care for him anymore Neurology on board no additional testing Will continue monitor closely Waiting for placement to dementia unit records CAD S/P stent Denies any chest pain will resume Aspirin and Metoprolol HTN BP fluctuated possible due to hospital setting continue metoprolol and Lasix Continue monitor BP Lung nodule CT Lung showed numerous (greater than 20) solid subcentimeter bilateral pulmonary nodules measuring up to 9 mm within the left upper lobe. Continue outpatient CT follow up DVT prophylaxis. SCDs Code status DNR Waiting for placement She requests updates from providers through [id number]. Admission and Anticipated Discharge Date Admission Date: April 19, 2021 Subjective Pt was seen and examined for follow up of confusion Lying in bed with no acute distress Denies any chest pain, palpitation, dizziness and SOB Physical Exam Physical Exam: General- No acute distress Head- atraumatic Eyes- PERRL, EOMI, ENT- oropharynx clear Neck- supple, no JVD Lungs- clear to auscultation Heart- regular rhythm; no murmur Abdomen- normal bowel sounds, soft, nontender Extremities- no calf tenderness Neuro- alert, awake, not oriented to time, place ; PERRL, EOMI; no facial palsy; no dysarthria Skin- warm & dry Results & Data Results & Data ([facility]) Vital Signs (Past 12 Hours) Vital Signs Temp Pulse Resp BP Pulse Ox 04/23/21 15:16 36.8 C 87 20 149/82 H 97
[2021-04-24] MEDS: METOPROLOL SUCC 25MG EXT REL TAB PO SCH (08:27)
[2021-04-24] MEDS: FUROSEMIDE 20 MG TAB PO SCH (08:28)
[2021-04-24] MEDS: DOCUSATE SODIUM 100 MG CAP PO SCH (08:29)
--- NOTE | 2021-04-24 16:32 | Hospitalist Progress Note ---
Date of Service April 24, 2021 Assessment & Plan (1) Delirium: Plan: Mostly due to Advanced dementia ( notices cognitive declined in the last years) CT head showed no acute intracranial abnormality. CTA chest showed no PE or pneumonia No evidence to suggest any infection UA negative for UTI Spoke to that requested if pt can be evaluated neurology while in the hospital since pt has been refused to see a doctor would like him to be placed at a facility because she cannot care for him anymore Neurology on board no additional testing Will continue monitor closely Waiting for placement to dementia unit records Remain stable and denies any acute symptoms Feels much better today and wants to go home CAD S/P stent Denies any chest pain will resume Aspirin and Metoprolol HTN BP fluctuated possible due to hospital setting continue metoprolol and Lasix Continue monitor BP Lung nodule CT Lung showed numerous (greater than 20) solid subcentimeter bilateral pulmonary nodules measuring up to 9 mm within the left upper lobe. Continue outpatient CT follow up DVT prophylaxis. SCDs Code status DNR Waiting for placement She requests updates from providers through [id number]. Admission and Anticipated Discharge Date Admission Date: April 19, 2021 Subjective 04/24/2021 The patient was seen and examined in medical telemetry unit He remained stable and wants to go home Pleasantly confused but denies any acute symptoms Review of Systems Review of Systems: Unobtainable due to cognitive status Physical Exam Physical Exam: Lying in bed comfortably Constitutional: average body habitus; not ill appearing Eyes: PERRL, conjunctivae normal, anicteric sclerae ENMT: external ear and nose normal, oropharynx normal Neck: trachea midline, no thyromegaly Respiratory: no respiratory distress and no cough Auscultation: lungs clear to auscultation bilaterally Cardiovascular: Rate/Rhythm: regular rate and regular rhythm; not tachycardic Heart Sounds: normal S1 and normal S2 Extremities: no edema Gastrointestinal (Abdomen): normal bowel sounds, soft, nontender, no hepatosplenomegaly Neurologic: Alert and awake. Pleasantly confused. Generally weak Results & Data Results & Data ([facility]) Vital Signs (Past 12 Hours) Vital Signs Temp Pulse Resp BP BP Pulse Ox 04/24/21 16:17 36.5 C 90 18 129/78 97 04/24/21 07:07 36.5 C 81 20 133/77 96 Medications Administered Current Inpatient Medications Acetaminophen (Acetaminophen 325 Mg Tab) 650 mg PO Q4H PRN PRN Reason: Pain or Fever Stop: 05/20/21 03:19 Docusate Sodium (Docusate Sodium 100 Mg Cap) 100 mg PO DAILY [facility] Stop: 05/20/21 08:59 Last Admin: 04/24/21 08:29 Dose: 100 mg Documented by: Furosemide (Furosemide 20 Mg Tab) 20 mg PO DAILY [facility] Stop: 05/21/21 09:44 Last Admin: 04/24/21 08:28 Dose: 20 mg Documented by: Promethazine HCl 6.25 mg/ (Sodium Chloride) 50.25 mls @ 201 mls/hr IV Q6H PRN PRN Reason: Nausea And Vomiting Stop: 05/20/21 03:19 Metoprolol Succinate (Metoprolol Succ 25mg Ext Rel Tab) 25 mg PO DAILY [facility] Stop: 05/21/21 09:44 Last Admin: 04/24/21 08:27 Dose: 25 mg Documented by:
[2021-04-25] MEDS: FUROSEMIDE 20 MG TAB PO SCH (08:27)
[2021-04-25] MEDS: METOPROLOL SUCC 25MG EXT REL TAB PO SCH (08:27)
[2021-04-25] MEDS: DOCUSATE SODIUM 100 MG CAP PO SCH (08:27)
[2021-04-25 09:04] LABS: Basophils # (auto) 0.01 K/uL (0-0.2); Basophils % (auto) 0.1 %; Eosinophils # (auto) 0.01 K/uL (0-0.5); Eosinophils % (auto) 0.1 %; Hematocrit (blood only) 41.1 % (42-52); Hemoglobin 13.8 g/dL (14.0-18.0); Immature Granulocytes # (auto) 0.02 K/uL (0.00-0.02); Immature Granulocytes % (auto) 0.2 %; Mean Corpuscular Hemoglobin 33.3 pg (25-34); Mean Corpuscular Hgb Conc 33.6 g/dL (32-36); Mean Corpuscular Volume 99.3 fL (80-100); Mean Platelet Volume 8.9 fL (7.4-10.4); Monocytes # (auto) 0.78 K/uL (0.11-0.59); Monocytes % (auto) 8.9 %; Neutrophils # (auto) 7.26 K/uL (1.4-6.5); Neutrophils % (auto) 82.7 %; Platelet Count 284 K/uL (130-400); RDW Coefficient of Variation 13.5 % (11.5-14.5); RDW Standard Deviation 48.8 fL (36.4-46.3); Red Blood Count 4.14 M/uL (4.7-6.1); White Blood Count 8.78 K/uL (4.8-10.8)
[2021-04-25 09:22] LABS: BUN Creatinine Ratio 42.5 (10-20); Calcium 9.3 mg/dl (8.5-10.1); Creatinine Clr Calc Pharmacy 60.6 ml/min; Est GFR (African American) 104.2 ml/min; Est GFR (Non-African American) 89.9 ml/min; Magnesium 2.4 mg/dl (1.8-2.4); Phosphorus 2.4 mg/dl (2.5-4.9); Potassium 3.5 mmol/L (3.5-5.1)
--- NOTE | 2021-04-25 10:06 | Emergency Department Note ---
Impression & Plan Altered mental status, Delirium ED Provider Note NAME: DAREN ALEGRE AGE: 76 SEX: M : 1945 ARRIVES VIA: Ambulance INFORMANT: Patient, ED PROVIDER(S): John Brink MD CHIEF COMPLAINT: confusion HPI: This is a 76-year-old male from the [facility] who got into his car today to drive to [facility] near [place]. He ended up at a [employer] and [place]. Workers at this store called state police because the patient appeared incredibly confused. Upon arrival to the emergency department the patient thinks he is in [place]. He is genuinely angry that he is here and wishes to be released. Telephone call to the patient's reviews that the patient has been increasingly forgetful ever since esophageal cancer surgery approximately 2 years ago the patient wishes to be discharged however the wishes for us to keep him in the hospital overnight until she can come up from the [facility]. She reports that the patient has not been taking any of his medications. ROS: See above HPI for pertinent positives & negatives. A total of 10 systems reviewed and were otherwise negative. PAST MEDICAL HISTORY: See Below PAST SURGICAL HISTORY: See Below FAMILY HISTORY: See Below SOCIAL HISTORY: See Below HOME MEDICATIONS: See Below ALLERGIES: See Below VITALS: See Below PHYSICAL EXAMINATION: VITAL SIGNS - Vital signs and nursing notes were reviewed. GENERAL - 76-year-old male appearing stated age who is in no acute distress. Angry that he is here trying to leave SKIN - Without rashes. HEAD - NC/AT. EYES - PERRL with EOMI bilaterally. Sclera anicteric. Palpebral conjunctiva pink and moist with no injection noted. EARS - No deformities of external structures noted on gross examination bilaterally. NOSE - Midline and without cyanosis. No epistaxis or purulent drainage noted. Septum midline without deviation or septal hematoma noted. MOUTH/OROPHARYNX - Without perioral cyanosis. Buccal mucosa pink and moist and without leukoplakia. Tongue midline with equal elevation of palate bilaterally. No tonsillar hypertrophy, erythema, or exudates noted. NECK - Neck with FROM. Supple to palpation. LUNGS - Chest wall symmetric without accessory muscle use, intercostals retractions, or central cyanosis. Normal vesicular breath sounds CTA B/L. No wheezes, rales, or rhonchi appreciated. CARDIAC - RRR with S1/S2. No murmur, rubs, or gallops appreciated. ABDOMEN - Abdominal contour without pulsations or visible masses. BS normoactive all four quadrants. No tenderness, palpable masses, hepatosplenomegaly, or ascites noted. EXTREMITIES - No clubbing or peripheral cyanosis. No pretibial edema present. +3/5 radial, posterior tibial, and dorsalis pedis pulses palpated throughout. +5/5 strength noted in UE/LE bilaterally. NEUROLOGIC - Cranial nerves II through XII grossly intact. Sensory intact to light touch throughout. Patellar reflexes +2/4. MEDICAL DECISION MAKING: Patient was seen and evaluated as above in room B10. Review was performed of nursing notes and vital signs. I did review pertinent previous visits and patient history. After obtaining a thorough history and physical examination the above work up was performed. This is a 76-year-old male who presents emergency department after being found wandering a store in the [place] area. The patient is belligerent and is trying to leave. For this reason he was sedated for his own safety as his cannot come and get him until the morning. He was given 5 mg of Haldol as well as Ativan. Repeat examination revealed improvement the patient's symptoms. Patient's hemoglobin is 13.8 he does not have an elevation in his troponin. Due to the nature of the problem he was discussed with the medicine service who did agree to admit the patient. CAT scan of the head was interpreted by me does not show any acute process. An order was placed for continuous cardiac monitoring. The monitor shows a rate of 76 with Normal Sinus rhythm. The patient was evaluated during a period of high volume and high acuity during the global COVID-19 pandemic, and that diagnosis was suspected/considered upon their initial presentation. Their evaluation, treatment and testing was consistent with current guidelines for patients who present with complaints or symptoms that may be related to COVID-19. Patient was seen while provider was wearing PPE. Triage Nursing notes reviewed. Prior medical records reviewed Vital Signs: reviewed and remarkable for no significant abnormalities Differential diagnosis: Infection, dehydration, metabolic abnormality, hypo/hyperglycemia, electrolyte disturbance, anemia, hypoxia, cardiac sources, intracerebral event, toxicologic, neurologic, as well as other pathologies. ER treatment provided: See below Diagnostics interpreted by me: ECG: EKG shows sinus rhythm with first-degree AV block with premature supraventricular complex right bundle branch block old inferior infarct no previous EKG to compare to QTC is 457 ventricular rate of 66 Laboratory studies: As stated above and show below. Imaging studies: See below Consultation(s): Internal Medicine Critical Care: I have personally spent greater than 30 minutes of critical care time in the direct management of this patient. This includes bedside care, interpretation of diagnostic studies, and testing, discussion with consultants, patient, and family members, and other required patient management activities. This 30 minutes is in excess of all separately billable procedures. Past Med/Surg History Social History Smoking Status: Unknown if ever smoked Preferred Language: Mohawk Communication Ability Comment: Patient confused, unable to provide information Current Living Situation: Spouse Other Information That Helps Us Care for You: No Feels Safe at Home: Yes Safety Concerns: Feels Safe At This Time Assistive Devices: Denture - Upper and Glasses Assistive Devices Comment: Patient confused, unable to provide information Allergies Allergies Allergy/AdvReac Type Severity Reaction Status Date / Time No Known Allergies Allergy Verified 04/19/21 18:08 Home Meds Home Medications Medication Instructions Recorded Confirmed aspirin 81 mg tablet,delayed 81 mg PO DAILY 04/19/21 04/19/21 release cholecalciferol (vitamin D3) 25 0 mcg PO DAILY 04/19/21 04/19/21 mcg (1,000 unit) capsule (Vitamin D3) cyanocobalamin (vitamin B-12) 1,000 mcg PO DAILY 04/19/21 04/19/21 1,000 mcg tablet (Vitamin B-12) docusate sodium 100 mg capsule 100 mg PO DAILY 04/19/21 04/19/21 (Stool Softener) furosemide 20 mg tablet (Lasix) 20 mg PO DAILY 04/19/21 04/19/21 metoprolol succinate 25 mg 25 mg PO DAILY 04/19/21 04/19/21 tablet,extended release 24 hr (Toprol XL) Results & Data (ED) Home Medications Current Medication List: was personally reviewed by me Laboratory Data Attestation: I reviewed the patient's lab results. Result diagrams: 04/25/21 08:52 04/25/21 08:52 Lab Results 04/19/21 04/19/21 04/19/21 Range/Units 18:30 18:30 19:45 WBC 5.10 (4.8-10.8) K/uL RBC 3.51 L (4.7-6.1) M/uL Hgb 11.6 L (14.0-18.0) g/dL Hct 34.4 L (42-52) % MCV 98.0 (80-100) fL MCH 33.0 (25-34) pg MCHC 33.7 (32-36) g/dL RDW Std Deviation 47.8 H (36.4-46.3) fL RDW Coeff of Drake 13.4 (11.5-14.5) % Plt Count 230 (130-400) K/uL MPV 8.7 (7.4-10.4) fL Immature Gran % (Auto) 0.2 % Neut % (Auto) 69.2 % Lymph % (Auto) 15.7 % [place] % (Auto) 13.3 % Eos % (Auto) 1.0 % Baso % (Auto) 0.6 % Neut # (Auto) 3.53 (1.4-6.5) K/uL Lymph # (Auto) 0.80 L (1.2-3.4) K/uL [place] # (Auto) 0.68 H (0.11-0.59) K/uL Eos # (Auto) 0.05 (0-0.5) K/uL Baso # (Auto) 0.03 (0-0.2) K/uL Immature Gran # (Auto) 0.01 (0.00-0.02) K/uL Sodium (136-145) mmol/L Potassium (3.5-5.1) mmol/L Chloride (98-107) mmol/L Carbon Dioxide (21-32) mmol/L Anion Gap (3-11) BUN (7-18) mg/dl Creatinine (0.6-1.4) mg/dl Est Cr Clr Drug Dosing ml/min Est GFR ( Amer) ml/min Est GFR (Non-Af Amer) ml/min BUN/Creatinine Ratio (10-20) Glucose (70-99) mg/dl Calcium (8.5-10.1) mg/dl Magnesium (1.8-2.4) mg/dl Total Bilirubin (0.2-1) mg/dl AST (15-37) U/L ALT (12-78) U/L Alkaline Phosphatase (45-117) U/L Total Creatine Kinase (39-308) U/L CK-MB (CK-2) (0.5-3.6) ng/ml CK/CKMB % Calc (0-3.0) Troponin I (0-0.045) ng/ml NT-Pro-B Natriuret Pep (0-1800) pg/ml Total Protein (6.4-8.2) gm/dl Albumin (3.4-5.0) gm/dl Globulin (2.5-4.0) gm/dl Albumin/Globulin Ratio (0.9-2) TSH (0.300-4.500) uIu/ml Urine Color Urine Appearance (Clear) Urine pH (4.5-7.5) Ur Specific [place] (1.000-1.030) Urine Protein (Negative) Urine Glucose (UA) (Negative) Urine Ketones (Negative) Urine Blood (Negative) Urine Nitrite (Negative) Urine Bilirubin (Negative) Urine Urobilinogen (Negative) Ur Leukocyte Esterase (Negative) Lyme Disease IgG Ab (Negative) Lyme Disease IgM Ab (Negative) COVID-19 Eval Order Covid19 at [facility] SARS-CoV-2 (PCR) NEGATIVE (Negative) 04/19/21 04/19/21 04/19/21 Range/Units 19:45 19:45 21:33 WBC (4.8-10.8) K/uL RBC (4.7-6.1) M/uL Hgb (14.0-18.0) g/dL Hct (42-52) % MCV (80-100) fL MCH (25-34) pg MCHC (32-36) g/dL RDW Std Deviation (36.4-46.3) fL RDW Coeff of Drake (11.5-14.5) % Plt Count (130-400) K/uL MPV (7.4-10.4) fL Immature Gran % (Auto) % Neut % (Auto) % Lymph % (Auto) % [place] % (Auto) % Eos % (Auto) % Baso % (Auto) % Neut # (Auto) (1.4-6.5) K/uL Lymph # (Auto) (1.2-3.4) K/uL [place] # (Auto) (0.11-0.59) K/uL Eos # (Auto) (0-0.5) K/uL Baso # (Auto) (0-0.2) K/uL Immature Gran # (Auto) (0.00-0.02) K/uL Sodium 137 (136-145) mmol/L Potassium 4.0 (3.5-5.1) mmol/L Chloride 107 (98-107) mmol/L Carbon Dioxide 28 (21-32) mmol/L Anion Gap 2.0 L (3-11) BUN 20 H (7-18) mg/dl Creatinine 0.72 (0.6-1.4) mg/dl Est Cr Clr Drug Dosing 76.5 ml/min Est GFR ( Amer) 103.6 ml/min Est GFR (Non-Af Amer) 89.3 ml/min BUN/Creatinine Ratio 27.1 H (10-20) Glucose 119 H (70-99) mg/dl Calcium 8.6 (8.5-10.1) mg/dl Magnesium 2.2 (1.8-2.4) mg/dl Total Bilirubin 1.1 H (0.2-1) mg/dl AST 24 (15-37) U/L ALT 26 (12-78) U/L Alkaline Phosphatase 81 (45-117) U/L Total Creatine Kinase 99 (39-308) U/L CK-MB (CK-2) 3.4 (0.5-3.6) ng/ml CK/CKMB % Calc 3.4 H (0-3.0) Troponin I < 0.015 (0-0.045) ng/ml NT-Pro-B Natriuret Pep 810 (0-1800) pg/ml Total Protein 7.0 (6.4-8.2) gm/dl Albumin 3.4 (3.4-5.0) gm/dl Globulin 3.6 (2.5-4.0) gm/dl Albumin/Globulin Ratio 0.9 (0.9-2) TSH 2.040 (0.300-4.500) uIu/ml Urine Color Yellow Urine Appearance Clear (Clear) Urine pH 7.5 (4.5-7.5) Ur Specific [place] 1.035 H (1.000-1.030) Urine Protein Negative (Negative) Urine Glucose (UA) Negative (Negative) Urine Ketones Negative (Negative) Urine Blood Negative (Negative) Urine Nitrite Negative (Negative) Urine Bilirubin Negative (Negative) Urine Urobilinogen Negative (Negative) Ur Leukocyte Esterase Negative (Negative) Lyme Disease IgG Ab Negative (Negative) Lyme Disease IgM Ab Negative (Negative) COVID-19 Eval Order SARS-CoV-2 (PCR) (Negative) Administered Medications Docusate Sodium (Docusate Sodium 100 Mg Cap) 100 mg PO DAILY MASON Stop: 05/20/21 08:59 Last Admin: 04/25/21 08:27 Dose: 100 mg Documented by: [id number] Admin: 04/24/21 08:29 Dose: 100 mg Documented by: [id number] Admin: 04/23/21 14:49 Dose: Not Given Documented by: [id number] Admin: 04/22/21 09:10 Dose: Not Given Documented by: [id number] Admin: 04/21/21 09:17 Dose: Not Given Documented by: [id number] Admin: 04/20/21 08:42 Dose: Not Given Documented by: [id number] Furosemide (Furosemide 20 Mg Tab) 20 mg PO DAILY MASON Stop: 05/21/21 09:44 Last Admin: 04/25/21 08:27 Dose: 20 mg Documented by: [id number] Admin: 04/24/21 08:28 Dose: 20 mg Documented by: [id number] Admin: 04/23/21 14:50 Dose: Not Given Documented by: [id number] Admin: 04/22/21 09:10 Dose: Not Given Documented by: [id number] Admin: 04/21/21 11:29 Dose: 20 mg Documented by: [id number] Metoprolol Succinate (Metoprolol Succ 25mg Ext Rel Tab) 25 mg PO DAILY MASON Stop: 05/21/21 09:44 Last Admin: 04/25/21 08:27 Dose: 25 mg Documented by: [id number] Admin: 04/24/21 08:27 Dose: 25 mg Documented by: [id number] Admin: 04/23/21 14:50 Dose: Not Given Documented by: [id number] Admin: 04/22/21 12:19 Dose: 25 mg Documented by: [id number] Admin: 04/22/21 09:10 Dose: Not Given Documented by: [id number] Admin: 04/21/21 11:30 Dose: 25 mg Documented by: [id number] Discontinued Medications Gadobutrol (Gadobutrol 65ml Vial) 5.4 ml IV ONCE ONE Stop: 04/22/21 20:48 Last Admin: 04/22/21 20:48 Dose: 5.4 ml Documented by: [id number] Haloperidol (Haloperidol 5 Mg Tab) 5 mg PO NOW STA Stop: 04/19/21 18:18 Last Admin: 04/19/21 18:55 Dose: 5 mg Documented by: [id number] Haloperidol Lactate (Haloperidol Lactate 5 Mg/Ml 1 Ml Vial) 2 mg IM NOW STA Stop: 04/20/21 19:21 Last Admin: 04/20/21 19:49 Dose: Not Given Documented by: [id number] Haloperidol Lactate (Haloperidol Lactate 5 Mg/Ml 1 Ml Vial) Confirm Administered Dose 5 mg .ROUTE .STK-MED ONE Stop: 04/20/21 19:25 Last Admin: 04/20/21 19:25 Dose: 5 mg Documented by: [id number] Haloperidol Lactate (Haloperidol Lactate 5 Mg/Ml 1 Ml Vial) 4 mg IM NOW STA Stop: 04/20/21 22:40 Last Admin: 04/20/21 22:50 Dose: 4 mg Documented by: [id number] Haloperidol Lactate (Haloperidol Lactate 5 Mg/Ml 1 Ml Vial) Confirm Administered Dose 5 mg .ROUTE .STK-MED ONE Stop: 04/20/21 22:44 Last Admin: 04/20/21 22:51 Dose: Not Given Documented by: [id number] Piperacillin Sod/Tazobactam Sod (Zosyn) 4.5 gm in 120 mls @ 240 mls/hr IV NOW ONE Stop: 04/19/21 22:05 Last Infusion: 04/19/21 23:54 Dose: 0 mls/hr Documented by: [id number] Admin: 04/19/21 22:43 Dose: 240 mls/hr Documented by: [id number] Sodium Chloride (Nss 1000ml) 1,000 mls @ 50 mls/hr IV .Q20H ONE Stop: 04/20/21 21:11 Last Infusion: 04/20/21 16:18 Dose: 0 mls/hr Documented by: [id number] Admin: 04/20/21 03:42 Dose: 50 mls/hr Documented by: [id number] Ioversol (Optiray 320 125ml) 119 ml IV ONCE ONE Stop: 04/19/21 20:46 Last Admin: 04/19/21 20:45 Dose: 1 ml Documented by: [id number] Lorazepam (Lorazepam 1 Mg Tab) 1 mg SL NOW STA Stop: 04/19/21 18:18 Last Admin: 04/19/21 18:55 Dose: 1 mg Documented by: [id number] Olanzapine (Olanzapine 10 Mg/2.1 Ml Sdv) 2.5 mg IM Q4H PRN PRN Reason: Anxiety/Agitation Stop: 05/19/21 21:54 Last Admin: 04/20/21 18:10 Dose: 2.5 mg Documented by: [id number] Olanzapine (Olanzapine 10 Mg/2.1 Ml Sdv) 2.5 mg IM NOW STA Stop: 04/20/21 20:27 Last Admin: 04/20/21 20:41 Dose: 2.5 mg Documented by: [id number] Pneumococcal Polyvalent Vaccine (Pneumococcal Polysaccharide Vaccine 25mcg/0.5ml Vial/Syr) 25 mcg IM .ONCE ONE Stop: 04/20/21 04:46 Last Admin: 04/20/21 20:23 Dose: Not Given Documented by: [id number] Imaging Data Radiologist's Impression: Chest X-Ray 04/19/21 18:09 XR chest 1V portable HISTORY: weakness COMPARISON: None. FINDINGS: The lungs are hyperexpanded with apical predominant emphysematous changes. There is a small right pleural effusion. The heart is normal in size. Interstitial thickening and a hazy right basilar density. There are small nodular densities within the lung apices. IMPRESSION: 1. Small right pleural effusion and right basilar hazy density. This may represent atelectasis or pneumonia. 2. Emphysema. 3. Small nodular densities within the lung apices which may be chronic. This will be better present on the same day chest CT. ACT 112: Negative or not required by law. Electronically signed by: Roberto Fowler M.D. 04/19/2021 7:[address] 04/19/21 18:09 CT head/brain wo con CLINICAL HISTORY: 76 years-old Male with AMS. Acutely altered mental status TECHNIQUE: Multiple axial CT images of the head were obtained without contrast. A dose lowering technique was utilized adhering to the principles of ALARA. COMPARISON: None. FINDINGS: No acute intracranial hemorrhage, midline shift, intracranial mass, hydrocephalus, territorial ischemia or abnormal extra-axial collection. Age- related involutional changes. White matter hypodensities suggestive of chronic microvascular ischemic disease. The calvarium is intact. Prior bilateral lens repair. The paranasal sinuses, mastoid air cells, and middle ear cavities are clear. IMPRESSION: No acute intracranial abnormality. ACT 112: Negative or not required by law. The above report was generated using voice recognition software. It may contain grammatical, syntax or spelling errors. Electronically signed by: Ernesto Arteaga M.D. 04/20/2021 6:42 AM Abdomen/Pelvis CT 04/19/21 18:24 CT abd pelvis IV con only CLINICAL HISTORY: Pt c/o AMS COMPARISON STUDY: None. TECHNIQUE: A dose lowering technique was utilized adhering to the principles of ALARA. CT DOSE: FINDINGS: Evaluation is limited due to beam hardening artifact from patient's arms and very little amount of intra-abdominal fat. Lower chest: Please see report of the CT of the chest performed at the same time.. Liver: The contrast-enhanced liver is normal in size, contour, and attenuation. There is minimal prominence of the central intrahepatic biliary ducts. No focal liver lesions are seen.. Gallbladder: Is fluid-filled. No definite gallstones are seen. Spleen: Normal in size and attenuation. Pancreas: Body and tail are atrophic. Pancreatic head and uncinate process shows no definite focal lesions and mild prominence of the distal common bile duct. Adrenal glands: Unremarkable. Kidneys: There is symmetric renal cortical enhancement. The kidneys are normal in size without hydronephrosis.No definite nephrolithiasis is seen. 1.0 cm hypoattenuating lesion is seen within left renal cortex, most likely representing cyst. Pelvic viscera: Urinary bladder is adequately filled with urine. Prostate gland is not enlarged. Bowel: Postsurgical changes at the gastroesophageal junction. Possible status post pull-through procedure. Please correlate this findings with prior history. Loops of small bowel are nondilated, fluid-filled with mild diffuse mucosal enhancement. Loops of large bowel are normal in caliber with extensive stool content. Rectum is mildly dilated with gas and stool. Appendix is not well seen. Limited evaluation due to very little amount of intra-abdominal fat and cachexia. Peritoneum: There is no intraperitoneal free air or abdominal ascites. Vasculature: Abdominal aorta is normal in caliber, tortuous with multiple parti al calcified plaques within its wall. Large atheromatous plaques is seen within infrarenal aorta without significant luminal narrowing measuring 1.7 x 1.5 cm (7/22) Adenopathy: No definite adenopathy is seen however evaluation is limited due to very little amount of intra-abdominal fat. Skeletal structures: Mild diffuse osteopenia. Multilevel degenerative changes of the spine. Mild lumbar levoscoliosis. Osteophytes and sclerotic appearance of bilateral sacroiliac joints, could represent degenerative process. Small sclerotic lesion is seen within right iliac bone (8/253) IMPRESSION: 1. Nondilated loops of small and large bowel. No evidence of bowel obstruction. Limited exam due to very little amount of intra-abdominal fat. 2. No free intra-abdominal gas or fluid. 3. Minimal central prominence of intrahepatic biliary ducts. 4. Atherosclerosis. 5. Degenerative changes of the spine. 6. Cachexia. 7. Postsurgical changes at the gastroesophageal junction, might represent prior esophageal pull-through procedure. Please correlate with prior history. 8. The rest of findings as above. ACT 112: Negative or not required by law. The above report was generated using voice recognition software. It may contain grammatical, syntax or spelling errors. Electronically signed by: Jaida Mora DO 04/20/2021 7:50 AM Chest CTA 04/19/21 18:24 CT angio chest PE protocol CT DOSE: 1191.20 mGy.cm HISTORY: 76 years-old Male with PE. Acute shortness of breath TECHNIQUE: Multiple CTA images of the chest were obtained after the intravenous administration of 119 ml Optiray. Coronal and sagittal MIPS were obtained from the axial data set and were submitted for review. All measurements were obtained according to NASCET criteria. A dose lowering technique was utilized adhering to the principles of ALARA. COMPARISON: CT abdomen and pelvis of same day FINDINGS: CTA: The heart is normal in size. There is no pericardial effusion. Extensive coronary artery calcifications. Moderate atherosclerosis of the thoracic aorta without aneurysm or dissection, suboptimally evaluated secondary to contrast bolus timing. Reflux of contrast into the IVC and hepatic veins. The pulmonary artery is opacified to the level of the subsegmental branches and demonstrates no filling defects to suggest thromboembolic disease. CT CHEST: Unremarkable thyroid. Calcified mediastinal and hilar lymph nodes suggestive of prior granulomatous disease. Trace left and small mildly loculated right pleural effusion. There is no pneumothorax. Mild intralobular septal thickening of the right lung base. Mild pleural parenchymal scarring of the lung apices. There are greater than 20 solid pulmonary nodules of the bilateral lungs in a multilobar distribution, the largest nodule measures 9 mm of the left upper lobe on image 229. A 6 mm nodule is present within the left upper lobe on image 222. An 8 mm and 6 mm nodule of the right upper lobe are present on image 220. Additionally, there are a few calcified pulmonary nodules present. The central airways appear generally patent with minimal tracheobronchial secretions. Mild groundglass opacities of the right lung base. Postoperative changes of the esophagus and stomach suggestive of gastric pull- through. Unremarkable soft tissues. No acute fracture. Healed right-sided rib fractures. IMPRESSION: 1. No pulmonary emboli. 2. Trace left and small mildly loculated right pleural effusion with right lung base atelectasis. 3. Mild intralobular septal thickening of the right lung base raises the possibility of asymmetric pulmonary edema. 4. Prior granulomatous disease. Additionally, there are numerous (greater than 20) solid subcentimeter bilateral pulmonary nodules measuring up to 9 mm within the left upper lobe. Follow-up guidelines provided below. 5. Prior gastric pull-through. Please refer to below summary of Fleischner criteria recommendations for follow- up of incidental CT nodules ([place], Guidelines for management of small pulmonary nodules detected on CT scans: A statement from the Fleischner Society, Radiology 237: [phone].) SOLID NODULES Multiple nodules size: >8 mm * Low risk patients: follow-up at 3-6 months, then consider further follow-up at 18-24 months * high risk patients: follow-up at 3-6 months, then at 18-24 months if no change Note: newly detected indeterminate nodule in persons 35 years of age or older. * Low risk patients: minimal or absent history of smoking and/or other known risk factors * high risk patients: history of smoking or of other known risk factors (e.g. first degree relative with lung cancer, or exposure to asbestos, radon, uranium) * if a nodule up to 8 mm is partly solid or is ground glass further follow-up is required after 24 months to exclude possible slow growing adenocarcinoma ([facility]ELA) ACT 112: Negative or not required by law. The above report was generated using voice recognition software. It may contain grammatical, syntax or spelling errors. Electronically signed by: Ernesto Arteaga M.D. 04/20/2021 8:17 AM Discharge Plan Visit Data Chief Complaint: Confusion ED Provider: John Brink Discharge Problem: Altered mental status, Delirium Patient Disposition: Admitted As Inpatient Discharge Instructions Interventions: ED Discharge Assessment Last Done: 04/20/21 03:11 Discharge Problem: Altered mental status Qualifiers: Altered mental status type: unspecified Qualified Code(s): R41.82 - Altered mental status, unspecified
--- NOTE | 2021-04-25 16:13 | Hospitalist Progress Note ---
Date of Service April 25, 2021 Assessment & Plan (1) Delirium: Plan: Mostly due to Advanced dementia ( notices cognitive declined in the last years) CT head showed no acute intracranial abnormality. CTA chest showed no PE or pneumonia No evidence to suggest any infection UA negative for UTI Spoke to that requested if pt can be evaluated neurology while in the hospital since pt has been refused to see a doctor would like him to be placed at a facility because she cannot care for him anymore Neurology on board no additional testing Will continue monitor closely Waiting for placement to dementia unit records Remain stable and denies any acute symptoms Feels much better today and wants to go home Denies any acute symptoms CAD S/P stent Denies any chest pain will resume Aspirin and Metoprolol HTN BP fluctuated possible due to hospital setting continue metoprolol and Lasix Continue monitor BP Lung nodule CT Lung showed numerous (greater than 20) solid subcentimeter bilateral pulmonary nodules measuring up to 9 mm within the left upper lobe. Continue outpatient CT follow up DVT prophylaxis. SCDs Hemoglobin remains stable and stool FOBT is not done yet We will give Lovenox as advised in H&P Code status DNR Waiting for placement She requests updates from providers through [phone]. Admission and Anticipated Discharge Date Admission Date: April 19, 2021 Subjective 04/24/2021 The patient was seen and examined in medical telemetry unit He remained stable and wants to go home Pleasantly confused but denies any acute symptoms 04/25/2021 The patient was seen and examined in medical telemetry unit He remains stable without any acute symptoms Review of Systems Review of Systems: Could not be reliably obtained Physical Exam Physical Exam: Lying in bed comfortably Constitutional: average body habitus; not ill appearing Eyes: PERRL, conjunctivae normal, anicteric sclerae ENMT: external ear and nose normal, oropharynx normal Neck: trachea midline, no thyromegaly Respiratory: no respiratory distress and no cough Auscultation: lungs clear to auscultation bilaterally Cardiovascular: Rate/Rhythm: regular rate and regular rhythm; not tachycardic Heart Sounds: normal S1 and normal S2 Extremities: no edema Gastrointestinal (Abdomen): normal bowel sounds, soft, nontender, no hepatosplenomegaly Musculoskeletal: No acute arthritis in any joint Neurologic: Alert and awake. pleasantly confused. Generally weak Results & Data Results & Data ([facility]) Vital Signs (Past 12 Hours) Vital Signs Temp Pulse Resp BP Pulse Ox 04/25/21 16:00 36.8 C 80 18 157/93 H 91 04/25/21 07:00 36.4 C L 76 16 155/87 H 99 Laboratory Results Short CBC 04/25/21 Range/Units 08:52 WBC 8.78 (4.8-10.8) K/uL Hgb 13.8 L (14.0-18.0) g/dL Hct 41.1 L (42-52) % Plt Count 284 (130-400) K/uL [facility] 04/25/21 08:52 Sodium 139 Potassium 3.5 Chloride 103 Carbon Dioxide 31 BUN 30 H Creatinine 0.71 Glucose 154 H Calcium 9.3 Medications Administered Short CBC 04/25/21 Range/Units 08:52 WBC 8.78 (4.8-10.8) K/uL Hgb 13.8 L (14.0-18.0) g/dL Hct 41.1 L (42-52) % Plt Count 284 (130-400) K/uL [facility] 04/25/21 08:52 Sodium 139 Potassium 3.5 Chloride 103 Carbon Dioxide 31 BUN 30 H Creatinine 0.71 Glucose 154 H Calcium 9.3
[2021-04-25] MEDS: ASPIRIN 81 MG ECTAB PO SCH (17:53)
[2021-04-25] MEDS: HEPARIN SOD 5,000 UNIT/0.5 ML VIAL SQ SCH (20:03)
[2021-04-26] MEDS: ASPIRIN 81 MG ECTAB PO SCH (08:57)
[2021-04-26] MEDS: FUROSEMIDE 20 MG TAB PO SCH (08:57)
[2021-04-26] MEDS: DOCUSATE SODIUM 100 MG CAP PO SCH (08:59)
[2021-04-26] MEDS: METOPROLOL SUCC 25MG EXT REL TAB PO SCH (08:59)
[2021-04-26] MEDS: HEPARIN SOD 5,000 UNIT/0.5 ML VIAL SQ SCH ×2 (09:01→20:21)
--- NOTE | 2021-04-26 16:37 | Hospitalist Progress Note ---
Date of Service April 26, 2021 Assessment & Plan (1) Delirium: Plan: Mostly due to Advanced dementia ( notices cognitive declined in the last years) CT head showed no acute intracranial abnormality. CTA chest showed no PE or pneumonia No evidence to suggest any infection UA negative for UTI Spoke to that requested if pt can be evaluated neurology while in the hospital since pt has been refused to see a doctor would like him to be placed at a facility because she cannot care for him anymore Neurology on board no additional testing Will continue monitor closely Waiting for placement to dementia unit records Remain stable and denies any acute symptoms Feels much better today and wants to go home No acute delirium but has profound dementia Will require 24 hours care CAD S/P stent Denies any chest pain will resume Aspirin and Metoprolol HTN BP fluctuated possible due to hospital setting continue metoprolol and Lasix Continue monitor BP Lung nodule CT Lung showed numerous (greater than 20) solid subcentimeter bilateral pulmonar y nodules measuring up to 9 mm within the left upper lobe. Continue outpatient CT follow up DVT prophylaxis. SCDs Hemoglobin remains stable and stool FOBT is not done yet We will give Lovenox as advised in H&P Code status DNR Waiting for placement She requests updates from providers through [phone]. Admission and Anticipated Discharge Date Admission Date: April 19, 2021 Subjective 04/24/2021 The patient was seen and examined in medical telemetry unit He remained stable and wants to go home Pleasantly confused but denies any acute symptoms 04/25/2021 The patient was seen and examined in medical telemetry unit He remains stable without any acute symptoms 04/26/2021 The patient was seen and examined in medical floor He remained stable and is pleasantly confused Denies any symptoms at rest Review of Systems Review of Systems: Could not be reliably obtained Physical Exam Physical Exam: Lying in bed comfortably Constitutional: average body habitus; not ill appearing Eyes: PERRL, conjunctivae normal, anicteric sclerae ENMT: external ear and nose normal, oropharynx normal Neck: trachea midline, no thyromegaly Respiratory: no respiratory distress and no cough Auscultation: lungs clear to auscultation bilaterally Cardiovascular: Rate/Rhythm: regular rate and regular rhythm; not tachycardic Heart Sounds: normal S1 and normal S2 Extremities: no edema Gastrointestinal (Abdomen): normal bowel sounds, soft, nontender, no hepatosplenomegaly Musculoskeletal: No acute arthritis involving any joint Neurologic: Pleasantly confused Lymphatic: no cervical or axillary lymphadenopathy Results & Data Results & Data ([facility]) Vital Signs (Past 12 Hours) Vital Signs Temp Pulse Resp BP Pulse Ox 04/26/21 16:09 36.9 C 71 16 155/80 H 98 04/26/21 08:56 86 119/72 04/26/21 07:54 36.4 C L 83 20 150/88 H 97 Medications Administered Current Inpatient Medications Acetaminophen (Acetaminophen 325 Mg Tab) 650 mg PO Q4H PRN PRN Reason: Pain or Fever Stop: 05/20/21 03:19 Aspirin (Aspirin 81 Mg Ectab) 81 mg PO QAM [facility] Stop: 05/25/21 16:14 Last Admin: 04/26/21 08:57 Dose: 81 mg Documented by: Docusate Sodium (Docusate Sodium 100 Mg Cap) 100 mg PO DAILY [facility] Stop: 05/20/21 08:59 Last Admin: 04/26/21 08:59 Dose: 100 mg Documented by: Furosemide (Furosemide 20 Mg Tab) 20 mg PO DAILY [facility] Stop: 05/21/21 09:44 Last Admin: 04/26/21 08:57 Dose: 20 mg Documented by: Heparin Sodium (Porcine) (Heparin Sod 5,000 Unit/0.5 Ml Vial) 5,000 units SQ Q12 [facility] Stop: 05/25/21 20:59 Last Admin: 04/26/21 09:01 Dose: 5,000 units Documented by: Promethazine HCl 6.25 mg/ (Sodium Chloride) 50.25 mls @ 201 mls/hr IV Q6H PRN PRN Reason: Nausea And Vomiting Stop: 05/20/21 03:19 Metoprolol Succinate (Metoprolol Succ 25mg Ext Rel Tab) 25 mg PO DAILY [facility] Stop: 05/21/21 09:44 Last Admin: 04/26/21 08:59 Dose: 25 mg Documented by:
[2021-04-27] MEDS: METOPROLOL SUCC 25MG EXT REL TAB PO SCH (07:59)
[2021-04-27] MEDS: FUROSEMIDE 20 MG TAB PO SCH (07:59)
[2021-04-27] MEDS: ASPIRIN 81 MG ECTAB PO SCH (07:59)
[2021-04-27] MEDS: DOCUSATE SODIUM 100 MG CAP PO SCH (08:00)
[2021-04-27] MEDS: HEPARIN SOD 5,000 UNIT/0.5 ML VIAL SQ SCH ×2 (08:00→20:28)
[2021-04-27 08:31] LABS: BUN Creatinine Ratio 47.8 (10-20); Calcium 9.7 mg/dl (8.5-10.1); Creatinine Clr Calc Pharmacy 67.3 ml/min; Est GFR (African American) 108.7 ml/min; Est GFR (Non-African American) 93.8 ml/min; Magnesium 2.1 mg/dl (1.8-2.4); Phosphorus 2.9 mg/dl (2.5-4.9); Potassium 3.4 mmol/L (3.5-5.1)
[2021-04-27] MEDS ORDERED: POTASSIUM CHLORIDE CRTAB 20 MEQ TABCR PO STA (09:20)
--- NOTE | 2021-04-27 16:59 | Hospitalist Progress Note ---
Date of Service April 27, 2021 Assessment & Plan (1) Delirium: Plan: Mostly due to Advanced dementia ( notices cognitive declined in the last years) CT head showed no acute intracranial abnormality. CTA chest showed no PE or pneumonia No evidence to suggest any infection UA negative for UTI Spoke to that requested if pt can be evaluated neurology while in the hospital since pt has been refused to see a doctor would like him to be placed at a facility because she cannot care for him anymore Neurology on board no additional testing Will continue monitor closely Waiting for placement to dementia unit records Remain stable and denies any acute symptoms Feels much better today and wants to go home No acute delirium but has profound dementia Remains stable CAD S/P stent Denies any chest pain will resume Aspirin and Metoprolol No acute cardiac symptoms HTN BP fluctuated possible due to hospital setting continue metoprolol and Lasix Continue monitor BP Lung nodule CT Lung showed numerous (greater than 20) solid subcentimeter bilateral pulmonary nodules measuring up to 9 mm within the left upper lobe. Continue outpatient CT follow up DVT prophylaxis. SCDs Hemoglobin remains stable and stool FOBT is not done yet We will give Lovenox as advised in H&P Code status DNR Waiting for placement She requests updates from providers through [phone]. Admission and Anticipated Discharge Date Admission Date: April 19, 2021 Subjective 04/24/2021 The patient was seen and examined in medical telemetry unit He remained stable and wants to go home Pleasantly confused but denies any acute symptoms 04/25/2021 The patient was seen and examined in medical telemetry unit He remains stable without any acute symptoms 04/26/2021 The patient was seen and examined in medical floor He remained stable and is pleasantly confused Denies any symptoms at rest April 27, 2021 The patient was seen and examined in medical floor He is pleasantly confused but denies any acute symptoms Review of Systems Review of Systems: Could not be reliably obtained Physical Exam Physical Exam: Lying in bed comfortably Constitutional: average body habitus; not ill appearing Eyes: PERRL, conjunctivae normal, anicteric sclerae ENMT: external ear and nose normal, oropharynx normal Neck: trachea midline, no thyromegaly Respiratory: no respiratory distress and no cough Auscultation: lungs clear to auscultation bilaterally Cardiovascular: Rate/Rhythm: regular rate and regular rhythm; not tachycardic Heart Sounds: normal S1 and normal S2 Extremities: no edema Gastrointestinal (Abdomen): normal bowel sounds, soft, nontender, no hepatosplenomegaly Musculoskeletal: No acute arthritis in any joint Neurologic: Has dementia but without any acute delirium Lymphatic: no cervical or axillary lymphadenopathy Results & Data Results & Data ([facility]) Vital Signs (Past 12 Hours) Vital Signs Temp Pulse Resp BP Pulse Ox 04/27/21 15:11 36.4 C L 67 16 130/83 96 04/27/21 07:26 37.3 C 90 18 143/85 H 99 Laboratory Results BMP 04/27/21 07:26 Sodium 142 Potassium 3.4 L Chloride 102 Carbon Dioxide 32 BUN 31 H Creatinine 0.64 Glucose 114 H Calcium 9.7 Medications Administered Current Inpatient Medications Acetaminophen (Acetaminophen 325 Mg Tab) 650 mg PO Q4H PRN PRN Reason: Pain or Fever Stop: 05/20/21 03:19 Aspirin (Aspirin 81 Mg Ectab) 81 mg PO QAM [facility] Stop: 05/25/21 16:14 Last Admin: 04/27/21 07:59 Dose: 81 mg Documented by: Docusate Sodium (Docusate Sodium 100 Mg Cap) 100 mg PO DAILY [facility] Stop: 05/20/21 08:59 Last Admin: 04/27/21 08:00 Dose: 100 mg Documented by: Furosemide (Furosemide 20 Mg Tab) 20 mg PO DAILY [facility] Stop: 05/21/21 09:44 Last Admin: 04/27/21 07:59 Dose: 20 mg Documented by: Heparin Sodium (Porcine) (Heparin Sod 5,000 Unit/0.5 Ml Vial) 5,000 units SQ Q12 [facility] Stop: 05/25/21 20:59 Last Admin: 04/27/21 08:00 Dose: 5,000 units Documented by: Promethazine HCl 6.25 mg/ (Sodium Chloride) 50.25 mls @ 201 mls/hr IV Q6H PRN PRN Reason: Nausea And Vomiting Stop: 05/20/21 03:19 Metoprolol Succinate (Metoprolol Succ 25mg Ext Rel Tab) 25 mg PO DAILY [facility] Stop: 05/21/21 09:44 Last Admin: 04/27/21 07:59 Dose: 25 mg Documented by:
[2021-04-28] MEDS: HEPARIN SOD 5,000 UNIT/0.5 ML VIAL SQ SCH ×2 (09:32→22:20)
[2021-04-28] MEDS: FUROSEMIDE 20 MG TAB PO SCH (09:32)
[2021-04-28] MEDS: METOPROLOL SUCC 25MG EXT REL TAB PO SCH (09:32)
[2021-04-28] MEDS: ASPIRIN 81 MG ECTAB PO SCH (09:32)
[2021-04-28] MEDS: DOCUSATE SODIUM 100 MG CAP PO SCH (09:35)
[2021-04-28] MEDS ORDERED: OLANZapine ZYDIS 5 MG ORALLY DIS. TAB PO PRN (12:51)
--- NOTE | 2021-04-28 17:34 | Hospitalist Progress Note ---
Date of Service April 28, 2021 Assessment & Plan (1) Delirium: Plan: Mostly due to Advanced dementia ( notices cognitive declined in the last years) CT head showed no acute intracranial abnormality. CTA chest showed no PE or pneumonia No evidence to suggest any infection UA negative for UTI Spoke to that requested if pt can be evaluated neurology while in the hospital since pt has been refused to see a doctor would like him to be placed at a facility because she cannot care for him anymore Neurology on board no additional testing Will continue monitor closely Waiting for placement to dementia unit records Remain stable and denies any acute symptoms Feels much better today and wants to go home No acute delirium but has profound dementia Remains stable Will give oral Zyprexa for occasional agitation Like to be transferred tomorrow to personal-longterm CAD S/P stent Denies any chest pain will resume Aspirin and Metoprolol No acute cardiac symptoms HTN BP fluctuated possible due to hospital setting continue metoprolol and Lasix Continue monitor BP Lung nodule CT Lung showed numerous (greater than 20) solid subcentimeter bilateral pulmonary nodules measuring up to 9 mm within the left upper lobe. Continue outpatient CT follow up DVT prophylaxis. SCDs Hemoglobin remains stable and stool FOBT is not done yet We will give Lovenox as advised in H&P Code status DNR Waiting for placement She requests updates from providers through [phone]. Admission and Anticipated Discharge Date Admission Date: April 19, 2021 Subjective 04/24/2021 The patient was seen and examined in medical telemetry unit He remained stable and wants to go home Pleasantly confused but denies any acute symptoms 04/25/2021 The patient was seen and examined in medical telemetry unit He remains stable without any acute symptoms 04/26/2021 The patient was seen and examined in medical floor He remained stable and is pleasantly confused Denies any symptoms at rest April 27, 2021 The patient was seen and examined in medical floor He is pleasantly confused but denies any acute symptoms 04/28/2021 The patient was seen and examined in medical floor Remains free of symptoms and pleasantly confused Requiring assistance with most ADL S Review of Systems Review of Systems: Could not be reliably obtained Physical Exam Physical Exam: Lying in bed comfortably Constitutional: average body habitus; not ill appearing Eyes: PERRL, conjunctivae normal, anicteric sclerae ENMT: external ear and nose normal, oropharynx normal Neck: trachea midline, no thyromegaly Respiratory: no respiratory distress and no cough Auscultation: lungs clear to auscultation bilaterally Cardiovascular: Rate/Rhythm: regular rate and regular rhythm; not tachycardic Heart Sounds: normal S1 and normal S2 Extremities: no edema Gastrointestinal (Abdomen): normal bowel sounds, soft, nontender, no hepatosplenomegaly Musculoskeletal: No acute arthritis Neurologic: Alert and awake. Pleasantly confused Lymphatic: no cervical or axillary lymphadenopathy Results & Data Results & Data ([facility]) Vital Signs (Past 12 Hours) Vital Signs Temp Pulse Resp BP Pulse Ox 04/28/21 16:36 36.4 C L 90 18 116/75 96 04/28/21 09:32 36.8 C 04/28/21 07:44 90 18 125/82 97 Medications Administered Current Inpatient Medications Acetaminophen (Acetaminophen 325 Mg Tab) 650 mg PO Q4H PRN PRN Reason: Pain or Fever Stop: 05/20/21 03:19 Aspirin (Aspirin 81 Mg Ectab) 81 mg PO QAM [facility] Stop: 05/25/21 16:14 Last Admin: 04/28/21 09:32 Dose: 81 mg Documented by: Docusate Sodium (Docusate Sodium 100 Mg Cap) 100 mg PO DAILY [facility] Stop: 05/20/21 08:59 Last Admin: 04/28/21 09:35 Dose: 100 mg Documented by: Furosemide (Furosemide 20 Mg Tab) 20 mg PO DAILY [facility] Stop: 05/21/21 09:44 Last Admin: 04/28/21 09:32 Dose: 20 mg Documented by: Heparin Sodium (Porcine) (Heparin Sod 5,000 Unit/0.5 Ml Vial) 5,000 units SQ Q12 [facility] Stop: 05/25/21 20:59 Last Admin: 04/28/21 09:32 Dose: 5,000 units Documented by: Promethazine HCl 6.25 mg/ (Sodium Chloride) 50.25 mls @ 201 mls/hr IV Q6H PRN PRN Reason: Nausea And Vomiting Stop: 05/20/21 03:19 Metoprolol Succinate (Metoprolol Succ 25mg Ext Rel Tab) 25 mg PO DAILY [facility] Stop: 05/21/21 09:44 Last Admin: 04/28/21 09:32 Dose: 25 mg Documented by: Olanzapine (Olanzapine Zydis 5 Mg Orally Dis. Tab) 5 mg PO BID PRN PRN Reason: Agitation Stop: 05/28/21 20:59
[2021-04-29] MEDS: HEPARIN SOD 5,000 UNIT/0.5 ML VIAL SQ SCH (08:19)
[2021-04-29] MEDS: ASPIRIN 81 MG ECTAB PO SCH (08:20)
[2021-04-29] MEDS: METOPROLOL SUCC 25MG EXT REL TAB PO SCH (08:22)
[2021-04-29] MEDS: DOCUSATE SODIUM 100 MG CAP PO SCH (08:23)
[2021-04-29 08:27] LABS: Basophils # (auto) 0.01 K/uL (0-0.2); Basophils % (auto) 0.1 %; Eosinophils # (auto) 0.01 K/uL (0-0.5); Eosinophils % (auto) 0.1 %; Hematocrit (blood only) 42.4 % (42-52); Hemoglobin 14.1 g/dL (14.0-18.0); Immature Granulocytes # (auto) 0.03 K/uL (0.00-0.02); Immature Granulocytes % (auto) 0.4 %; Lymphocytes # (auto) 0.83 K/uL (1.2-3.4); Lymphocytes % (auto) 10.2 %; Mean Corpuscular Hgb Conc 33.3 g/dL (32-36); Mean Corpuscular Volume 99.3 fL (80-100); Mean Platelet Volume 9.5 fL (7.4-10.4); Monocytes # (auto) 0.55 K/uL (0.11-0.59); Monocytes % (auto) 6.7 %; Neutrophils # (auto) 6.72 K/uL (1.4-6.5); Neutrophils % (auto) 82.5 %; Platelet Count 349 K/uL (130-400); RDW Coefficient of Variation 13.4 % (11.5-14.5); RDW Standard Deviation 48.1 fL (36.4-46.3); Red Blood Count 4.27 M/uL (4.7-6.1); White Blood Count 8.15 K/uL (4.8-10.8)
[2021-04-29 09:08] LABS: BUN Creatinine Ratio 54.4 (10-20); Creatinine Clr Calc Pharmacy 71.8 ml/min; Est GFR (African American) 111.6 ml/min; Est GFR (Non-African American) 96.3 ml/min; Potassium 4.2 mmol/L (3.5-5.1)
[2021-04-29] MEDS: FUROSEMIDE 20 MG TAB PO SCH (10:23)
--- NOTE | 2021-04-29 11:56 | Hospitalist Progress Note ---
Date of Service April 29, 2021 Assessment & Plan (1) Delirium: Plan: Mostly due to Advanced dementia ( notices cognitive declined in the last years) CT head showed no acute intracranial abnormality. CTA chest showed no PE or pneumonia No evidence to suggest any infection UA negative for UTI Spoke to that requested if pt can be evaluated neurology while in the hospital since pt has been refused to see a doctor would like him to be placed at a facility because she cannot care for him anymore Neurology on board no additional testing Will continue monitor closely Waiting for placement to dementia unit records Remain stable and denies any acute symptoms Feels much better today and wants to go home No acute delirium but has profound dementia Will give oral Zyprexa for occasional agitation Remains stable to be transferred to [facility] CAD S/P stent Denies any chest pain will resume Aspirin and Metoprolol No acute cardiac symptoms HTN BP fluctuated possible due to hospital setting continue metoprolol and Lasix Continue monitor BP Lung nodule CT Lung showed numerous (greater than 20) solid subcentimeter bilateral pulmonary nodules measuring up to 9 mm within the left upper lobe. Continue outpatient CT follow up DVT prophylaxis. SCDs Hemoglobin remains stable and stool FOBT is not done yet We will give Lovenox as advised in H&P Code status DNR Waiting for placement She requests updates from providers through [phone]. Admission and Anticipated Discharge Date Admission Date: April 19, 2021 Subjective 04/24/2021 The patient was seen and examined in medical telemetry unit He remained stable and wants to go home Pleasantly confused but denies any acute symptoms 04/25/2021 The patient was seen and examined in medical telemetry unit He remains stable without any acute symptoms 04/26/2021 The patient was seen and examined in medical floor He remained stable and is pleasantly confused Denies any symptoms at rest April 27, 2021 The patient was seen and examined in medical floor He is pleasantly confused but denies any acute symptoms 04/28/2021 The patient was seen and examined in medical floor Remains free of symptoms and pleasantly confused Requiring assistance with most ADL S 04/29/2021 The patient was seen and examined in medical floor He remains stable and denies any symptoms Pleasantly confused and requires assistance with most ADL S Review of Systems Review of Systems: Could not be reliably obtained Physical Exam Physical Exam: Lying in bed comfortably Constitutional: + thin and + cachectic; not ill appearing Eyes: PERRL, conjunctivae normal, anicteric sclerae ENMT: external ear and nose normal, oropharynx normal Neck: trachea midline, no thyromegaly Respiratory: no respiratory distress and no cough Auscultation: lungs clear to auscultation bilaterally Cardiovascular: Rate/Rhythm: regular rate and regular rhythm; not tachycardic Heart Sounds: normal S1 and normal S2 Extremities: no edema Gastrointestinal (Abdomen): normal bowel sounds, soft, nontender, no hepatosplenomegaly Musculoskeletal: No acute arthritis involving any joint Neurologic: Alert, awake. Pleasantly confused and generally weak Lymphatic: no cervical or axillary lymphadenopathy Results & Data Results & Data ([facility]) Vital Signs (Past 12 Hours) Vital Signs Temp Pulse Resp BP Pulse Ox 04/29/21 08:00 36.3 C L 79 16 147/85 H 99 Laboratory Results Short CBC 04/29/21 Range/Units 08:09 WBC 8.15 (4.8-10.8) K/uL Hgb 14.1 (14.0-18.0) g/dL Hct 42.4 (42-52) % Plt Count 349 (130-400) K/uL BMP 04/29/21 08:09 Sodium 143 Potassium 4.2 Chloride 103 Carbon Dioxide 33 H BUN 33 H Creatinine 0.60 Glucose 108 H Calcium 10.0 Medications Administered Current Inpatient Medications Acetaminophen (Acetaminophen 325 Mg Tab) 650 mg PO Q4H PRN PRN Reason: Pain or Fever Stop: 05/20/21 03:19 Aspirin (Aspirin 81 Mg Ectab) 81 mg PO QAM [facility] Stop: 05/25/21 16:14 Last Admin: 04/29/21 08:20 Dose: 81 mg Documented by: Docusate Sodium (Docusate Sodium 100 Mg Cap) 100 mg PO DAILY [facility] Stop: 05/20/21 08:59 Last Admin: 04/29/21 08:23 Dose: 100 mg Documented by: Furosemide (Furosemide 20 Mg Tab) 20 mg PO DAILY [facility] Stop: 05/21/21 09:44 Last Admin: 04/29/21 10:23 Dose: Not Given Documented by: Heparin Sodium (Porcine) (Heparin Sod 5,000 Unit/0.5 Ml Vial) 5,000 units SQ Q12 [facility] Stop: 05/25/21 20:59 Last Admin: 04/29/21 08:19 Dose: 5,000 units Documented by: Promethazine HCl 6.25 mg/ (Sodium Chloride) 50.25 mls @ 201 mls/hr IV Q6H PRN PRN Reason: Nausea And Vomiting Stop: 05/20/21 03:19 Metoprolol Succinate (Metoprolol Succ 25mg Ext Rel Tab) 25 mg PO DAILY [facility] Stop: 05/21/21 09:44 Last Admin: 04/29/21 08:22 Dose: 25 mg Documented by: Olanzapine (Olanzapine Zydis 5 Mg Orally Dis. Tab) 5 mg PO BID PRN PRN Reason: Agitation Stop: 05/28/21 20:59
--- NOTE | 2021-04-30 08:23 | Discharge Summary ---
Date of Service April 30, 2021 Admission HPI Per Admitting Provider History obtained from patient, family, and records. Limited history from patient secondary to confusion. Medical history significant for possible dementia as per , CAD status post stent, hypertension, esophageal cancer status post surgery/chemoradiation, past tobacco abuse, medication noncompliance as per . Patient noticed patient cognitive decline since esophageal cancer surgery a few years ago. Forgetfulness, episodic confusion. Patient has good mentation on most days though as per . suspected possible dementia but patient has refused to see his family doctor for almost a year now. Patient not taking his medications like usual as per . Patient left home in [place], [place] by himself yesterday to drive to their local [employer]. As per EMS report, patient found going around a grocery in [place], [place] this afternoon looking confused. Patient denies chest pain, S OB, cough, abdominal pain, dysuria symptoms. Patient brought to the ER for evaluation. Noted to be very combative at the ER. IV Ativan administered. Patient given Zosyn for possible pneumonia. 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 Admission Exam Per Admitting Provider Physical Exam: GENERAL: Comfortable, demented, no respiratory distress SKIN: Pallor , warm HEENT: Alopecia, bespectacled, pale palpebral conjunctivae, no ptosis, dry bucc al mucosa NECK : Supple, no tenderness CHEST : Decreased breath sounds, no tenderness HEART : Bradycardic, no obvious murmurs ABDOMEN: No distention, nontender RECTAL : Refused EXTREMITIES : No LE swelling/tenderness, no other conspicuous deformities noted NEUROLOGIC : Demented, no facial asymmetry, gait and stance not assessed Principal Diagnosis Dementia with acute delirium-resolved, stable CAD, hypertension, lung nodule- outpatient follow-up with CT is recommended Discharge Exam Constitutional + thin and + cachectic; not ill appearing Eyes PERRL, conjunctivae normal, anicteric sclerae ENMT external ear and nose normal, oropharynx normal Neck trachea midline, no thyromegaly Respiratory no respiratory distress and no cough Auscultation: lungs clear to auscultation bilaterally Cardiovascular Rate/Rhythm: regular rate and regular rhythm; not tachycardic Heart Sounds: normal S1 and normal S2 Extremities: no edema Gastrointestinal (Abdomen) normal bowel sounds, soft, nontender, no hepatosplenomegaly Lymphatic no cervical or axillary lymphadenopathy Discharge Data Allergies Allergy/AdvReac Type Severity Reaction Status Date / Time No Known Allergies Allergy Verified 04/19/21 18:08 Consultations 04/19/21 21:59 ED Decision to Admit Stat 04/20/21 16:46 Consult Neurology Routine Ordered Studies 04/19/21 18:09 CT head/brain wo con Stat 04/19/21 18:24 CT abd pelvis IV con only Stat CT angio chest PE protocol Stat 04/22/21 08:30 MR brain wo/w con Routine Hospital Course (1) Delirium: Mostly due to Advanced dementia ( notices cognitive declined in the last years) CT head showed no acute intracranial abnormality. CTA chest showed no PE or pneumonia No evidence to suggest any infection UA negative for UTI Spoke to that requested if pt can be evaluated neurology while in the hospital since pt has been refused to see a doctor would like him to be placed at a facility because she cannot care for him anymore Neurology on board no additional testing Will continue monitor closely Waiting for placement to dementia unit records Remain stable and denies any acute symptoms Feels much better today and wants to go home No acute delirium but has profound dementia Will give oral Zyprexa for occasional agitation Remains stable to be transferred to [facility] CAD S/P stent Denies any chest pain will resume Aspirin and Metoprolol No acute cardiac symptoms HTN BP fluctuated possible due to hospital setting continue metoprolol and Lasix Continue monitor BP Lung nodule CT Lung showed numerous (greater than 20) solid subcentimeter bilateral pulmonary nodules measuring up to 9 mm within the left upper lobe. Continue outpatient CT follow up DVT prophylaxis. SCDs Hemoglobin remains stable and stool FOBT is not done yet We will give Lovenox as advised in H&P Code status DNR Waiting for placement She requests updates from providers through [phone]. Total Time Total Time Spent Total Time Spent (In Minutes): 35 minutes Discharge Plan Discharge Items Patient Disposition: Personal Skilled Nursing Reason For Visit: DELIRIUM Discharge Diagnosis: Dementia with acute delirium-resolved, stable CAD, hypertension, lung nodule- outpatient follow-up with CT is recommended Condition on Discharge: Fair Activity: Resume your previous activity Non-emergency contact: Primary Care Provider Call non-emergency contact if: you have any medication questions and your symptoms worsen Follow-up/Referrals: PCP,NO [Primary Care Provider] - Diet: Heart Healthy Diet Texture: Dental soft (bite-sized) Addtl Attending Provider Instructions: Please take precautions to avoid falls He will need assistance with most of the ADLs Continue PT and OT Urinary catheter can be taken out in 5 to 7 days Pending Studies at Discharge: No Stand-Alone Forms: My [employer], Smoking Cessation Skilled Items Patient informed of condition?: Yes DNR: Yes Discharge Level of Care: Other Communicable Disease: No Discharge Prognosis: Stable Lines: None Urinary Catheter: Yes Medications and DC Order Prescriptions: New olanzapine 5 mg Tablet,Disintegrating 5 mg PO BID PRN (Reason: agitation) Qty: 10 RF: 0 Continued cyanocobalamin (vitamin B-12) [Vitamin B-12] 1,000 mcg Tablet 1,000 mcg PO DAILY RF: 0 aspirin 81 mg Tablet,Delayed Release (Dr/Ec) 81 mg PO DAILY RF: 0 docusate sodium [Stool Softener] 100 mg Capsule 100 mg PO DAILY RF: 0 furosemide [Lasix] 20 mg Tablet 20 mg PO DAILY RF: 0 metoprolol succinate [Toprol XL] 25 mg Tablet Extended Release 24 Hr 25 mg PO DAILY RF: 0 cholecalciferol (vitamin D3) [Vitamin D3] 25 mcg (1,000 unit) Capsule 0 mcg PO DAILY RF: 0 Discharge Orders: Discharge Order (Routine); Ordered 04/29/21 Ordered By: Bertha Dunn Admission Data Admit Date/Time: 04/19/21 23:59 Attending Provider: Bertha Dunn Admit Provider: Rafael Montoya Primary Care Provider: PCP,NO Other Providers: Rafael Montoya ; Bennie Hobson ; Suresh Antony Other Interventions: Discharge Summary Assessment (RN) Last Done: 04/29/21 12:20
== END 2021-04-29 15:32 | disposition home or self-care (01) | DRG 884 ==
LOC: EDSEX 17:21 → ED 17:21 → SUATTDRO 23:59 → 2S 23:59 → 2W 04-21 14:59 → 3N 04-25 20:51